=== PATIENT | male | born 1950 | race Caucasian/White ===

== ENCOUNTER 2019-10-07 21:48 | Emergency (ER) | payer BC ==
--- OUTSIDE RECORDS SUMMARY | 2019-10-07 21:51 | XMS REPORT | Continuity of Care Document ---
:1950 Author Organization [facility] t Address [address] [place] [address] Dr. Yusuf [address] [place] [address] Care Team Providers Name Role Phone Unavailable Unavailable Unavailable Problems This patient has no known problems. Allergies, Adverse Reactions, Alerts This patient has no known allergies or adverse reactions. Medications This patient has no known medications. Procedures This patient has no known procedures. Results This patient has no known results.
[2019-10-07 23:33] LABS: Absolute Lymphocytes (CBC) 0.6 K/uL (0.7-4.9); Basophils % 0.5 % (0-1.3); Hematocrit 40.4 % (39.6-49.0); Lymphocytes % 14.8 % (15.3-44.8); MPV 9.9 fL (7.6-11.3); RBC Red Blood Cell Count 4.22 M/uL (4.33-5.43)
[2019-10-07 23:39] LABS: Protime INR 0.98
[2019-10-07 23:53] LABS: ALT/SGPT 30 U/L (12-78); AST/SGOT 24 U/L (15-37); Albumin 4.2 g/dL (3.4-5.0); Alkaline Phosphatase 91 U/L (45-117); BUN Blood Urea Nitrogen 19 mg/dL (7-18); Bicarbonate 24 mmol/L (21-32); Bilirubin Direct 0.2 mg/dL (0-0.2); Bilirubin Total 0.5 mg/dL (0.2-1.0); CKMB Creatine Kinase MB 1.2 ng/mL (0.3-3.6); Creatine Phosphokinase 101 U/L (39-308); Glucose Level 94 mg/dL (74-106); Lipase 276 U/L (73-393); NT PRO-BNP 84 pg/mL (<125); Potassium 4.3 mmol/L (3.5-5.1); Protein, Total 8.1 g/dL (6.4-8.2); Sodium Level 138 mmol/L (136-145); Troponin (Emerg Dept Use Only) < 0.02 ng/mL (0.0-0.045)
--- NOTE | 2019-10-08 00:54 | ER ---
Nurse's Notes [facility] Name: Júnior Rodrigues Age: 69 yrs Sex: Male : 1950 Arrival Date: 10/07/2019 Time: 21:51 Bed 7 Private MD: Diagnosis: Acute pharyngitis, unspecified;Dyspnea Presentation: 10/06 22:07 Chief complaint: Patient states: Jamee had some shortness of breath over the last two sg days, Jamee felt really dizzy today like I was about to to pass out, I was dx with a sinus congestion and I think its just moved further down the bronchials. Coronavirus screen: Proceed with normal triage. Ebola Screen: Patient negative for fever greater than or equal to 101.5 degrees Fahrenheit, and additional compatible Ebola Virus Disease symptoms Patient denies exposure to infectious person. Patient denies travel to an Ebola-affected area in the 21 days before illness onset. No symptoms or risks identified at this time. Initial Sepsis Screen: Does the patient meet any 2 criteria? No. Patient's initial sepsis screen is negative. Does the patient have a suspected source of infection? No. Patient's initial sepsis screen is negative. Risk Assessment: Do you want to hurt yourself or someone else? Patient reports no desire to harm self or others. Onset of symptoms was October 07, 2019. Care prior to arrival: None. 22:07 Method Of Arrival: Ambulatory 22:07 Acuity: SHEKHAR 3 Triage Assessment: 10/07 00:00 Respiratory: Airway is patent Respiratory effort is even, unlabored, Onset: The rv symptoms/episode began/occurred suddenly, the patient has mild shortness of breath. 00:00 General: Appears comfortable. rv Historical: - Allergies: 10/06 22:07 No Known Allergies; sg - Home Meds: 23:59 losartan oral oral [Active]; atorvastatin oral oral [Active]; carvedilol oral oral rr5 [Active]; clopidogrel oral oral [Active]; Zetia Oral [Active]; restasis [Active]; fluticasone nasal nasal [Active]; pantoprazole oral oral [Active]; Aspirin Oral [Active]; Osteo Bi-Flex Triple Strength oral oral [Active]; Refresh Optive ophthalmic ophthalmic [Active]; FreshKote ophthalmic ophthalmic [Active]; romero gelatin [Active]; - PMHx: 23:59 small bowel obstruction; rr5 23:59 Hyperlipidemia; rr5 - PSHx: 23:59 stent implant; Cholecystectomy; rr5 - Immunization history:: Adult Immunizations up to date. - Social history:: Smoking status: Patient denies any tobacco usage or history of. Screenin:23 Abuse screen: Denies threats or abuse. Denies injuries from another. Nutritional rr5 screening: No deficits noted. Tuberculosis screening: No symptoms or risk factors identified. Fall Risk IV access (20 points). Total Rico Fall Scale indicates No Risk (0-24 pts). Assessment: 22:50 General: Appears in no apparent distress. uncomfortable, Behavior is calm, cooperative, rr5 appropriate for age. 22:50 Pain: Denies pain. Neuro: Level of Consciousness is awake, alert, obeys commands, rr5 Oriented to person, place, time, situation, Reports dizziness, a syncopal episode. Cardiovascular: Capillary refill < 3 seconds Patient's skin is warm and dry. Rhythm is regular. Respiratory: Reports shortness of breath Airway is patent Respiratory effort is even, unlabored, Respiratory pattern is regular, symmetrical, GI: No signs and/or symptoms were reported involving the gastrointestinal system. : No signs and/or symptoms were reported regarding the genitourinary system. EENT: No signs and/or symptoms were reported regarding the EENT system. Derm: Skin is intact, is healthy with good turgor, Skin temperature is warm. Musculoskeletal: Circulation, motion, and sensation intact. Capillary refill < 3 seconds. 23:30 Reassessment: Patient appears in no apparent distress at this time. Patient is alert, rr5 oriented x 3, equal unlabored respirations, skin warm/dry/pink. awaiting for results. 10/07 00:50 Reassessment: Patient appears in no apparent distress at this time. Patient is alert, rr5 oriented x 3, equal unlabored respirations, skin warm/dry/pink. discharge instruction given and explained without complaints made. Vital Signs: 10/06 22:07 BP 132 / 70; Pulse 87; Resp 18 S; Temp 98.2; Pulse Ox 100% on R/A; Pain 3/10; sg 23:00 BP 121 / 79; Pulse 80; Resp 19; Pulse Ox 98% ; rr5 23:53 BP 128 / 81; Pulse 76; Resp 17; Pulse Ox 99% ; rr5 10/07 00:58 BP 129 / 80; Pulse 65; Resp 17; Temp 98; Pulse Ox 97% on R/A; rv ED Course: 10/05 22:55 Flu and/or RSV swab sent to lab. Strep swab sent to lab. covid 19. rr5 10/06 21:51 Patient arrived in ED. cf2 22:06 Arm band placed on. sg 22:09 Triage completed. sg 22:10 Patient has correct armband on for positive identification. Placed in gown. Bed in low rr5 position. Call light in reach. secured entrance monitor on. Pulse ox on. NIBP on. 22:46 Rony Rey MD is Attending Physician. tw4 22:54 Miguel A Perea, RN is Primary Nurse. rr5 23:00 EKG done, by ED staff, reviewed by Rony Rey MD. rr5 23:10 First set of blood cultures drawn. Inserted saline lock: 20 gauge in right forearm, rr5 using aseptic technique. Blood collected. 23:30 Second set of blood cultures drawn. rr5 23:44 XRAY CXR (1 view) In Process Unspecified. EDMS 10/07 00:58 No provider procedures requiring assistance completed. IV discontinued, intact, rv bleeding controlled, No redness/swelling at site. Pressure dressing applied. Administered Medications: No medications were administered Outcome: 00:53 Discharge ordered by . tw4 01:01 Discharged to home ambulatory. rv 01:01 Condition: good 01:01 Discharge instructions given to patient, Instructed on discharge instructions, follow up and referral plans. medication usage, Demonstrated understanding of instructions, follow-up care, medications, Prescriptions given X 2. 01:01 Patient left the ED. rv Addendum: 10/12/2019 17:49 Addendum: COVID-19 Result: Positive result giiven to ED physician to notify pt. h b Physician: Chace Ramos MD Physician was able to contact pt and pt was notified of positive COVID-19 swab result. Physician answered pt questions. Signatures: Dispatcher [employer] EDAK Dk Mahoney RN RN Keyla Gonzalez RN PRIMITIVO Rony Rey MD MD tw4 Nehemias Keller, RN RN rv Miguel A Perea RN RN rr5 Rosa Larsen cf2 Corrections: (The following items were deleted from the chart) 18:31 17:49 Addendum: COVID-19 Result: Positive result giiven to ED physician to notify pt. hb Physician: Chace Ramos MD
--- NOTE | 2019-10-08 00:54 | EDPHYS ---
Physician Documentation [facility] Name: Júnior Rodrigues Age: 69 yrs Sex: Male : 1950 Arrival Date: 10/07/2019 Time: 21:51 Bed 7 Private MD: ED Physician Rony Rey HPI: 10/07 06:01 This 69 yrs old Male presents to ER via Ambulatory with complaints of tw4 Shortness Of Breath. 06:01 The patient has shortness of breath at rest. Onset: The symptoms/episode began/occurred tw4 just prior to arrival, today. Duration: The symptoms are intermittent. The patient's shortness of breath has no apparent modifying factors. Associated signs and symptoms: The patient has no apparent associated signs or symptoms. Severity of symptoms: At their worst the symptoms were moderate in the emergency department the symptoms have improved. The patient has not experienced similar symptoms in the past. Historical: - Allergies: 10/06 22:07 No Known Allergies; sg - Home Meds: 23:59 losartan oral oral [Active]; atorvastatin oral oral [Active]; carvedilol oral oral rr5 [Active]; clopidogrel oral oral [Active]; Zetia Oral [Active]; restasis [Active]; fluticasone nasal nasal [Active]; pantoprazole oral oral [Active]; Aspirin Oral [Active]; Osteo Bi-Flex Triple Strength oral oral [Active]; Refresh Optive ophthalmic ophthalmic [Active]; FreshKote ophthalmic ophthalmic [Active]; romero gelatin [Active]; - PMHx: 23:59 small bowel obstruction; rr5 23:59 Hyperlipidemia; rr5 - PSHx: 23:59 stent implant; Cholecystectomy; rr5 - Immunization history:: Adult Immunizations up to date. - Social history:: Smoking status: Patient denies any tobacco usage or history of. ROS: 10/07 06:01 Constitutional: Negative for fever, chills, and weight loss, Eyes: Negative for injury, tw4 pain, redness, and discharge, Cardiovascular: Negative for chest pain, palpitations, and edema, Abdomen/GI: Negative for abdominal pain, nausea, vomiting, diarrhea, and constipation, Back: Negative for injury and pain, MS/Extremity: Negative for injury and deformity, Skin: Negative for injury, rash, and discoloration, Neuro: Negative for headache, weakness, numbness, tingling, and seizure. Respiratory: Positive for shortness of breath, Negative for cough, dyspnea on exertion, hemoptysis, orthopnea, pleurisy. Exam: 06:01 Constitutional: This is a well developed, well nourished patient who is awake, alert, tw4 and in no acute distress. Head/Face: Normocephalic, atraumatic. Chest/axilla: Normal chest wall appearance and motion. Nontender with no deformity. No lesions are appreciated. Cardiovascular: Regular rate and rhythm with a normal S1 and S2. No gallops, murmurs, or rubs. Normal PMI, no JVD. No pulse deficits. Respiratory: Lungs have equal breath sounds bilaterally, clear to auscultation and percussion. No rales, rhonchi or wheezes noted. No increased work of breathing, no retractions or nasal flaring. Abdomen/GI: Soft, non-tender, with normal bowel sounds. No distension or tympany. No guarding or rebound. No evidence of tenderness throughout. MS/ Extremity: Pulses equal, no cyanosis. Neurovascular intact. Full, normal range of motion. Neuro: Awake and alert, GCS 15, oriented to person, place, time, and situation. Cranial nerves II-XII grossly intact. Motor strength 5/5 in all extremities. Sensory grossly intact. Cerebellar exam normal. Normal gait. Vital Signs: 10/06 22:07 BP 132 / 70; Pulse 87; Resp 18 S; Temp 98.2; Pulse Ox 100% on R/A; Pain 3/10; sg 23:00 BP 121 / 79; Pulse 80; Resp 19; Pulse Ox 98% ; rr5 23:53 BP 128 / 81; Pulse 76; Resp 17; Pulse Ox 99% ; rr5 10/07 00:58 BP 129 / 80; Pulse 65; Resp 17; Temp 98; Pulse Ox 97% on R/A; rv MDM: 10/06 22:47 Patient medically screened. tw4 10/07 06:01 Differential diagnosis: Anxiety Reaction Bronchitis pneumonia, Pneumothorax pulmonary tw4 edema, reactive airway disease. Antibiotic administration: Not indicated. Data reviewed: vital signs, nurses notes. Data interpreted: Pulse oximetry: Interpretation: normal. Counseling: I had a detailed discussion with the patient and/or guardian regarding: the historical points, exam findings, and any diagnostic results supporting the discharge/admit diagnosis. Special discussion: I discussed with the patient/guardian in detail that at this point there is no indication for admission to the hospital. It is understood, however, that if the symptoms persist or worsen the patient needs to return immediately for re-evaluation. 10/06 22:47 Order name: Blood Culture Adult (2) 10/06 22:47 Order name: BMP; Complete Time: 00:43 10/07 00:43 Interpretation: Normal except: BUN 19; GFR 61. 10/06 22:47 Order name: CBC with Diff; Complete Time: 00:43 10/07 00:44 Interpretation: Normal except: WBC 4.1; RBC 4.22; LYM% 14.8; PLT 124. 10/06 22:47 Order name: Ckmb; Complete Time: 00:43 10/07 00:44 Interpretation: Within normal limits: CKMB 1.2. 10/06 22:47 Order name: CPK; Complete Time: 00:43 10/07 00:44 Interpretation: Within normal limits: CPK 101. 10/06 22:47 Order name: D-Dimer; Complete Time: 00:43 10/07 00:44 Interpretation: Within normal limits: D-DIMER 218. 10/06 22:47 Order name: Hepatic Function; Complete Time: 00:43 10/07 00:44 Interpretation: Normal except: GLOB 3.9. 10/06 22:47 Order name: Lipase; Complete Time: 00:43 10/07 00:44 Interpretation: Within normal limits: LIP 276. 10/06 22:47 Order name: Magnesium; Complete Time: 00:43 10/07 00:44 Interpretation: Within normal limits: MG 2.0. 10/06 22:47 Order name: NT PRO-BNP; Complete Time: 00:43 10/07 00:44 Interpretation: Within normal limits: NT PRO-BNP 84. 10/06 22:47 Order name: PT-INR; Complete Time: 00:43 10/07 00:44 Interpretation: Within normal limits: PT 11.6. 10/06 22:47 Order name: Ptt, Activated; Complete Time: 00:43 10/07 00:45 Interpretation: Within normal limits: PTT 36.6. 10/06 22:47 Order name: Troponin (emerg Dept Use Only); Complete Time: 00:43 10/07 00:46 Interpretation: Within normal limits: TROPED < 0.02. 10/06 22:47 Order name: COVID-19 10/06 22:47 Order name: XRAY CXR (1 view) 10/06 22:47 Order name: EKG; Complete Time: 22:48 10/06 22:47 Order name: Cardiac monitoring; Complete Time: 23:22 10/06 22:47 Order name: EKG - Nurse/Tech; Complete Time: 23:22 10/06 22:47 Order name: IV Saline Lock; Complete Time: 23:22 10/06 22:47 Order name: Labs collected and sent; Complete Time: 23:22 10/06 22:47 Order name: O2 Per Protocol; Complete Time: 23:22 10/06 22:47 Order name: O2 Sat Monitoring; Complete Time: 23:22 10/06 22:47 Order name: Flu; Complete Time: 00:43 10/06 22:47 Order name: Strep; Complete Time: 00:43 10/07 00:44 Interpretation: Abnormal: GP A STREP SC \T\nbsp; GROUP A STREP SCREEN-- \T\nbsp; \T\nbsp; tw4 POSITIVE. 10/06 22:47 Order name: Document PUI#; Complete Time: 01:01 10/06 22:47 Order name: Droplet/Contact Precautions; Complete Time: 23:21 10/06 22:47 Order name: Labs collected and sent; Complete Time: 23:21 10/06 22:47 Order name: Notify Health Dept [phone]/ ; Complete Time: 01:00 EC:01 Rate is 66 beats/min. Rhythm is regular. QRS [place] is Normal. NH interval is normal. QRS tw4 interval is normal. QT interval is normal. No Q waves. T waves are Normal. No ST changes noted. Clinical impression: Normal ECG. Interpreted by me. Reviewed by me. Administered Medications: No medications were administered Disposition: 10/08/19 00:53 Discharged to Home. Impression: Acute pharyngitis, unspecified, Dyspnea. - Condition is Stable. - Discharge Instructions: Pharyngitis, Shortness of Breath, Strep Throat, Upper Respiratory Infection, Adult. - Prescriptions for Amoxicillin 500 mg Oral Capsule - take 1 capsule by ORAL route every 8 hours for 10 days; 30 tablet. Albuterol Sulfate 90 mcg/actuation - inhale 1-2 puff by INHALATION route every 4-6 hours; 1 Inhaler. - Medication Reconciliation Form, Thank You Letter, Antibiotic Education, Prescription Opioid Use form. - Follow up: Private Physician; When: Upon discharge from the Emergency Department; Reason: Recheck today's complaints, Continuance of care, Re-evaluation by your physician. - Problem is new. - Symptoms have improved. Signatures: Dispatcher [employer] EDMS Dk Mahoney RN RN sg Rony Rey MD MD tw4 Nehemias Keller RN RN rv Miguel A Perea RN RN rr5 Corrections: (The following items were deleted from the chart) 01:01 00:53 10/08/2019 00:53 Discharged to Home. Impression: Acute pharyngitis, unspecified; rv Dyspnea. Condition is Stable. Forms are Medication Reconciliation Form, Thank You Letter, Antibiotic Education, Prescription Opioid Use. Follow up: Private Physician; When: Upon discharge from the Emergency Department; Reason: Recheck today's complaints, Continuance of care, Re-evaluation by your physician. Problem is new. Symptoms have improved. tw4
[2019-10-08 01:14] VITALS: BP 129/80; TEMP 98; O2SAT 97
--- NOTE | 2019-10-08 08:56 | EKG ---
Test Date: 2019-10-07 Test Time: 23:13:16 Contract Administrator: JOSE MANUEL MEASUREMENT RESULTS: Intervals: Rate: 66 NC: 158 QRSD: 88 QT: 392 QTc: 410 [place]: P: 60 NC: 158 QRS: 45 T: 42 INTERPRETIVE STATEMENTS: Normal sinus rhythm Normal ECG No previous ECG available for comparison Electronically Signed On 10-08-19 08:55:08 CDT by Isma Ma
--- NOTE | 2019-10-08 12:08 | RAD REPORT ---
EXAM DESCRIPTION: RAD - Chest Single View - 10/07/2019 11:44 pm CLINICAL HISTORY: SOB Chest pain. COMPARISON: No comparisons FINDINGS: Portable technique limits examination quality. The lungs are mildly emphysematous but grossly clear. The heart is normal in size. No displaced fract ures. IMPRESSION: No acute intrathoracic process suspected.
== END 2019-10-08 01:01 | disposition home or self-care (01) ==
LOC: ER 21:48
DX: U07.1 COVID-19 (principal); J02.9 Acute pharyngitis, unspecified; E78.5 Hyperlipidemia, unspecified; Z79.82 Long term (current) use of aspirin
CPT/HCPCS: 93005; 87040 ×2; 85025; 80048; 36415; 83735; 82550; 85610; 85379; 80076; 87081; 85730; 84484; 82553; 83690; 83880; 87804 ×2; 71045; 99284; U0001

== ENCOUNTER 2022-09-15 08:48 | Emergency (ER) | payer BC, OTHER ==
--- OUTSIDE RECORDS SUMMARY | 2022-09-15 08:56 | XMS REPORT | Continuity of Care Document ---
:1950 Author Organization [facility] t Address [address] [place] [address] [place] [id number] Care Team Providers Name Role Phone Angel Bach Primary Care Physician DYLAN VILLEGAS Attending Clinician Unavailable AIDAN YORK Attending Clinician Unavailable DYLAN VILLEGAS Attending Clinician Unavailable Doctor Unassigned, Vanoss Attending Clinician Unavailable Aidan York MD Attending Clinician [phone] Angel Bach MD Attending Clinician Lab, Ang - Db Attending Clinician Unavailable ANGEL BACH Attending Clinician Unavailable Therapist, Adc Respiratory Attending Clinician Unavailable Dillon Robbins MD Attending Clinician DILLON ROBBINS Attending Clinician Unavailable Pob, Adc Lab Main Attending Clinician Unavailable Vaccine, Ang Db Uc Attending Clinician Unavailable Kelsi Gomez MD Attending Clinician KELSI GOMEZ Attending Clinician Unavailable Wen Culp Attending Clinician Lula Angulo Attending Clinician LULA JARQUIN Attending Clinician Unavailable WEN LAM Attending Clinician Unavailable Dylan Villegas MD Attending Clinician [phone] Angelia Burgess MD Attending Clinician Andrea DAVE Hayder Attending Clinician Only, Adc Test Attending Clinician Unavailable Benjamin Clark MD Attending Clinician BENJAMIN CLARK Attending Clinician Unavailable Ada LEE, Mercedez Attending Clinician MERCEDEZ HADDAD Attending Clinician Unavailable Carlyn Rowan MD Attending Clinician Unavailable YUNIOR DEAN Attending Clinician Unavailable Nurse, Adc Pob Immunization Attending Clinician Unavailable Earl KRAUSE, Yunior Gavin Attending Clinician Vlad Cervantes MD Attending Clinician VLAD CERVANTES Attending Clinician Unavailable GER MCKEON Attending Clinician Unavailable Lab, Adc Fam Pob I Attending Clinician Unavailable Roberta Bauman PA-C Attending Clinician Pob1, [facility] Attending Clinician Unavailable DYLAN VILLEGAS Admitting Clinician Unavailable AIDAN YORK Admitting Clinician Unavailable Payers Payer Name Policy Type Policy Number Effective Date Expiration Date S ource BCBS PPO POS [id number] 2017 2021 00:00:00 EPO CHOICE 00:00:00 PPO/EPO - BCBS [id number] Problems Condition Condition Condition Status Onset Resolution Last Treating Co mments Source Name Details Category Date Date Treatment Clinician Date S/P S/P Disease Active 2014-04 [facility] coronary coronary 04-28 ity of artery artery 00:00: [place] stent stent 00 Medical placement placement Bran ch Essential Essential Disease Active 2014-04 Uni vers hypertensi hypertensi 04-23 it y of on, benign [place], benign 00:[place] [facility] Reflux Reflux Disease Active 2014-04 [facility] esophagiti esophagiti 04-23 it y of s s 00:00: [place] 00 Medical Branch 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 & Fatigue Allergies, Adverse Reactions, Alerts Allergy Allergy Status Severity Reaction(s) Onset Inactive Treating Comm ents Source Name Type Date Date Clinician LATEX Allergy Active Low Rash 2020-[address] [facility]OVES 2-06 [facility] 00:[facility]: [facility] 00 Center GLOVES, DRUG Active Low Rash 2020-04 Univers LATEX 2-06 ity of WITH 00:00: [place] ALOE 00 Medical VERA Branch Gloves, Drug Active Rash 2020-04 Univers Latex Allergy 2-06 ity of With 00:00: [place] Aloe 00 Medical Vera Branch Latex Drug Active Rash 2020-[address] [facility] Gloves Allergy 2-06 [facility] 00:[facility]: Medical 00 Center Sulfa Drug Active Itching Turned [facility] (Sulfona Allergy 1-14 eyes red, Luke s mide 00:00: burned, Medical Antibiot 00 itched Center ics) SULFA Allergy Active Low Itching [facility] (SULFONA 1-14 [facility] MIDE 00:00: Medical ANTIBIOT 00 Center ICS) Sulfa Drug Active Itching Turned [facility] (Sulfona Allergy 1-14 eyes red, Luke s mide 00:00: burned, Medical Antibiot 00 itched Center ics) SULFA Drug Active Low Unknown-Cmnt 2014-04 Univ ers (SULFONA Class 1-18 ity of MIDE 00:00: [place] ANTIBIOT 00 Medical ICS) Branch Sulfa Drug Active Itching 2014-04 Turned Univers (Sulfona Allergy 1-18 eyes red, ity of mide 00:00: burned, [place] Antibiot 00 itched Medical ics) Branch Sulfa Propensi Active Unknown - 2014-04 Unive rs (Sulfona ty to See comments 1-18 it y of mide adverse 00:00: [place] Antibiot reaction 00 Medica l ics) s Branch Social History Social Habit Start Date Stop Date Quantity Comments Source History SDOH [facility] Alcohol Frequency Medical Center History SDOH [facility] Alcohol Std Medical Cente r Drinks History SDOH [facility] Alcohol Binge Medical L[address] [facility] Exposure to 2022-03-30 2022-04-[address] [facility] SARS-CoV-2 00:00:00 08:25:00 [place] Medical (event) Branch Tobacco use and 2021-12-11 2021-12-11 Smokeless tobacco Un iversity of exposure 00:00:00 00:00:00 non-user [facility] Alcohol intake 2021-04-09 2021-04-09 Current drinker KATIE woodard Jayson 00:00:00 00:00:00 [facility] (finding) Alcohol Comment 2021-03-11 2021-03-11 2 per month KATIE Osborn brigitte 00:00:00 00:00:00 [facility] History of 1995-02-26 Cigarette Smoker Jay Jay ty of tobacco use 00:00:00 [facility] Sex [birth year] At [birth year] KATIE Tran 00:00:00 00:00:00 [facility] Smoking Status Start Date Stop Date Source Ex-smoker 2021-03-11 00:00:00 2021-03-11 00:00:00 [facility] Medications Ordered Filled Start Stop Current Ordering Indication Dosage Frequency Signature Comments Components Source Medication Medication Date Date Medication? Clinician (SIG) Name Name FLUTICASONE 2021-04 Yes [id number] SPRAY 2 Univers PROPIONATE 1-16 SPRAYS ity of 50 00:00: INTO EACH [place] mcg/actuati 00 NOSTRIL Medic al on nasal EVERY DAY Branch spray FLUTICASONE 2021-04 Yes [id number] SPRAY 2 Univers PROPIONATE 1-16 SPRAYS ity of 50 00:00: INTO EACH [place] mcg/actuati 00 NOSTRIL Medic al on nasal EVERY DAY Branch spray FLUTICASONE 2021-04 Yes [id number] SPRAY 2 Univers PROPIONATE 1-16 SPRAYS ity of 50 00:00: INTO EACH [place] mcg/actuati 00 NOSTRIL Medic al on nasal EVERY DAY Branch spray FLUTICASONE 2021-04 Yes [id number] SPRAY 2 Univers PROPIONATE 1-16 SPRAYS ity of 50 00:00: INTO EACH [place] mcg/actuati 00 NOSTRIL Medic al on nasal EVERY DAY Branch spray FLUTICASONE 2021-04 Yes [id number] SPRAY 2 Univers PROPIONATE 1-16 SPRAYS ity of 50 00:00: INTO EACH [place] mcg/actuati 00 NOSTRIL Medic al on nasal EVERY DAY Branch spray FLUTICASONE 2021-04 Yes [id number] SPRAY 2 Univers PROPIONATE 1-16 SPRAYS ity of 50 00:00: INTO EACH [place] mcg/actuati 00 NOSTRIL Medic al on nasal EVERY DAY Branch spray FLUTICASONE 0 Yes [id number] SPRAY 2 Univers PROPIONATE 9-22 SPRAYS ity of 50 00:00: INTO EACH [place] mcg/actuati 00 NOSTRIL Medic al on nasal EVERY DAY Branch spray FLUTICASONE 0 Yes [id number] SPRAY 2 Univers PROPIONATE 9-22 SPRAYS ity of 50 00:00: INTO EACH [place] mcg/actuati 00 NOSTRIL Medic al on nasal EVERY DAY Branch spray FLUTICASONE 0 Yes [id number] SPRAY 2 Univers PROPIONATE 9-22 SPRAYS ity of 50 00:00: INTO EACH [place] mcg/actuati 00 NOSTRIL Medic al on nasal EVERY DAY Branch spray FLUTICASONE 0 Yes [id number] SPRAY 2 Univers PROPIONATE 9-22 SPRAYS ity of 50 00:00: INTO EACH [place] mcg/actuati 00 NOSTRIL Medic al on nasal EVERY DAY Branch spray FLUTICASONE 0 Yes [id number] SPRAY 2 Univers PROPIONATE 9-22 SPRAYS ity of 50 00:00: INTO EACH [place] mcg/actuati 00 NOSTRIL Medic al on nasal EVERY DAY Branch spray FLUTICASONE Yes [id number] SPRAY 2 Univers PROPIONATE 9-22 SPRAYS ity of 50 00:00: INTO EACH [place] mcg/actuati 00 NOSTRIL Medic al on nasal EVERY DAY Branch spray FLUTICASONE 2021- No [id number] SPRAY 2 Univers PROPIONATE 9-22 11-16 SPRAYS ity of 50 00:00: 00:00 INTO EACH [place] mcg/actuati 00 :00 NOSTRIL Medic al on nasal EVERY DAY Branch spray azithromyci 0 Yes [id number] 250mg Take 1 Univers n 250 mg 6-16 tablet by ity of tablet 00:00: mouth [place] 00 daily. Medical Take 500 Branch mg day 1, then 250 mg days 2 to 5. azithromyci 2021-0 Yes [id number] 250mg Take 1 Univers n 250 mg 6-16 tablet by ity of tablet 00:00: mouth [place] 00 daily. Medical Take 500 Branch mg day 1, then 250 mg days 2 to 5. azithromyci 2021-0 Yes [id number] 250mg Take 1 Univers n 250 mg 6-16 tablet by ity of tablet 00:00: mouth [place] 00 daily. Medical Take 500 Branch mg day 1, then 250 mg days 2 to 5. azithromyci 2022-0 Yes [id number] 250mg Take 1 Univers n 250 mg 6-16 tablet by ity of tablet 00:00: mouth [place] 00 daily. Medical Take 500 Branch mg day 1, then 250 mg days 2 to 5. azithromyci 2022-0 Yes [id number] 250mg Take 1 Univers n 250 mg 6-16 tablet by ity of tablet 00:00: mouth [place] 00 daily. Medical Take 500 Branch mg day 1, then 250 mg days 2 to 5. azithromyci 2022-0 Yes [id number] 250mg Take 1 Univers n 250 mg 6-16 tablet by ity of tablet 00:00: mouth [place] 00 daily. Medical Take 500 Branch mg day 1, then 250 mg days 2 to 5. azithromyci 2022-0 2022- No [id number] 250mg Take 1 Univers n 250 mg 6-16 11-14 tablet by ity o f tablet 00:00: 00:00 mouth [place] 00 :00 daily. Medical Take 500 Branch mg day 1, then 250 mg days 2 to 5. azithromyci 2022-0 2022- No [id number] 250mg Take 1 Univers n 250 mg 6-16 11-14 tablet by ity o f tablet 00:00: 00:00 mouth [place] 00 :00 daily. Medical Take 500 Branch mg day 1, then 250 mg days 2 to 5. methylPREDN 2022-0 Yes [id number] Take by [facility] ISolone 5-29 mouth ity of (MEDROL, 00:00: SEE-INSTRU [place] as SOILA,) 4 mg 00 CTIONS. Medica l tablets follow Branch package directions methylPREDN 2022-0 Yes [id number] Take by [facility] ISolone 5-29 mouth ity of (MEDROL, 00:00: SEE-INSTRU [place] SOILA,) 4 mg 00 CTIONS. Medica l tablets follow Branch package directions methylPREDN 2022-0 Yes [id number] Take by [facility] ISolone 5-29 mouth ity of (MEDROL, 00:00: SEE-INSTRU [place] SOILA,) 4 mg 00 CTIONS. Medica l tablets follow Branch package directions methylPREDN 2022-0 Yes [id number] Take by [place] [facility] 09-01 mouth ity of (MEDROL, 00:00: SEE-INSTRU [place] SOILA,) 4 mg 00 CTIONS. Medica l tablets follow Branch package directions methylPREDN Yes [id number] Take by [facility] 09-01 mouth ity of (MEDROL, 00:00: SEE-INSTRU [place] SOILA,) 4 mg 00 CTIONS. Medica l tablets follow Branch package directions methylPREDN Yes [id number] Take by [facility] mouth ity of (MEDROL, 00:00: SEE-INSTRU [place] SOILA,) 4 mg 00 CTIONS. Medica l tablets follow Branch package directions methylPREDN 2021- No [id number] Take by [place] [id number] 11-14 mouth ity of (MEDROL, 00:00: 00:00 [place]IN[place] SOILA,) 4 mg 00 :00 CTIONS. Medica l tablets follow Branch package directions methylPREDN 2021- No [id number] Take by [place] [id number] 11-14 mouth ity of (MEDROL, 00:00: 00:00 [place]INSTRU [place] SOILA,) 4 mg 00 :00 CTIONS. Medica l tablets follow Branch package directions aspirin 81 Yes 81mg QD Take [address] MG EC 1-04 by mouth [facility] tablet 10:07: daily. Medical 24 [place] atorvastati Yes 10mg QD Take [address] [facility] (LIPITOR) 1-04 by mouth Luke s 10 MG 10:07: nightly . Medical tablet 24 [place] carvediloL Yes 3.125mg Take 3.[address] (COREG) 1-04 mg by [facility] 3.125 MG 10:07: mouth 2 Medica l tablet 24 (two) Center times daily with breakfast and dinner. clopidogreL Yes 75mg QD Take [address] [facility] (PLAVIX) 75 1-04 by mouth Luke s mg tablet 10:07: daily. Medica l [address] [place] cycloSPORIN Yes 1[drp] Q.5D [address] [facility] E 1-04 (two) [facility]ukes (RESTASIS) 10:07: times Medica l 0.05 % 24 daily. Center ophthalmic emulsion diflupredna Yes Apply to [facility] 1-04 eye(s). [facility] (DurezoL) 10:07: Medical 0.05 % Drop 24 Center ezetimibe Yes 10mg QD Take [address] (ZETIA) 10 104 by mouth [facility] mg tablet 10:07: daily. Medica l 24 Center fluticasone Yes 1{spray [address] [facility] propionate 04-09 } Nasal [facility] (FLONASE) 10:07: route Medical 50 24 daily as Center mcg/actuati needed for on nasal Rhinitis spray or Allergies . losartan Yes 50mg QD Take [address] [facility] (COZAAR) 50 04 by mouth Luke s MG tablet 10:07: daily. Medica l 24 Center pantoprazol Yes 20mg QD Take [address] [facility] [facility] e 104 by mouth [facility] (PROTONIX) 10:07: daily. Medic al 20 MG 24 Center tablet bromfenac Yes Apply to [facility] (Prolensa) 1 eye(s). [facility] 0.07 % Drop 10:07: Medica l 24 Center polymyxin B Yes 1[drp] [address] sulf-trimet 1-04 every 4 [facility] hoprim 10:07: (four) Medical 10,000 24 hours. Center unit- 1 mg/mL Drop psyllium Yes 1{packe Q.5D Take [address] [facility] (METAMUCIL) 1-04 t} packet by [place] es powder 10:07: mouth 2 Medical 24 (two) Center times daily . glucosamine Yes 1{capsu QD Take [address] /chondr green 1-04 le} capsule by [facility] es A sod 10:07: mouth Medical (OSTEO 24 daily . Center BI-FLEX ORAL) carboxymeth Yes 1[drp] Place [address] ylcellulose 1-04 drop into [place] [facility] (REFRESH 10:07: both eyes Medi jluis PLUS) 0.5 % 24 3 (three) [address] [facility] Dpet times ophthalmic daily as solution needed. aspirin 81 Yes 81mg QD Take [address] MG EC 1-04 by mouth [facility] tablet 10:07: daily. Medical 24 Center atorvastati Yes 10mg QD Take [address] [facility] (LIPITOR) 1-04 by mouth Luke s 10 MG 10:07: nightly . Medical tablet 24 Center carvediloL Yes 3.125mg Take 3.[address] (COREG) 1-04 mg by [facility] 3.125 MG 10:07: mouth 2 Medica l tablet 24 (two) Center times daily with breakfast and dinner. clopidogreL Yes 75mg QD Take [address] [facility] (PLAVIX) 75 1-04 by mouth Luke s mg tablet 10:07: daily. Medica l 24 Center cycloSPORIN Yes 1[drp] Q.5D [address] [facility] E 1-04 (two) [facility]ukes (RESTASIS) 10:07: times Medica l 0.05 % 24 daily. Center ophthalmic emulsion diflupredna Yes Apply to [facility] 1-04 eye(s). [facility] (DurezoL) 10:07: Medical 0.05 % Drop 24 Center ezetimibe Yes 10mg QD Take [address] (ZETIA) 10 1-04 by mouth [facility] mg tablet 10:07: daily. Medica l 24 Center fluticasone Yes 1{spray [address] [facility] propionate 04-09 } Nasal [facility] (FLONASE) 10:07: route Medical 50 24 daily as Center mcg/actuati needed for on nasal Rhinitis spray or Allergies . losartan Yes 50mg QD Take [address] (COZAAR) 50 1-04 by mouth Luke s MG tablet 10:07: daily. Medica l 24 Center pantoprazol Yes 20mg QD Take [address] [facility] e 1-04 by mouth [facility] (PROTONIX) 10:07: daily. Medic al 20 MG 24 Center tablet bromfenac Yes Apply to [facility] (Prolensa) 1-04 eye(s). [facility] 0.07 % Drop 10:07: Medica l 24 Center polymyxin B Yes 1[drp] [address] sulf-trimet 1-04 every 4 [facility]ukes hoprim 10:07: (four) Medical 10,000 24 hours. Center unit- 1 mg/mL Drop psyllium Yes 1{packe Q.5D Take [address] [facility] (METAMUCIL) 1-04 t} packet by [employer] powder 10:07: mouth 2 Medical 24 (two) Center times daily . glucosamine Yes 1{capsu QD Take [address] /chondr green 1-04 le} capsule by [facility] es A sod 10:07: mouth Medical (OSTEO 24 daily . Center BI-FLEX ORAL) carboxymeth Yes 1[drp] Place [address] ylcellulose 1-04 drop into [facility] (REFRESH 10:07: both eyes Medi jluis PLUS) 0.5 % 24 3 (three) [address] [facility] Dpet times ophthalmic daily as solution needed. aspirin 81 Yes 81mg QD Take [address] MG EC 1-04 by mouth [facility] tablet 10:07: daily. Medical 24 Center atorvastati Yes 10mg QD Take [address] n (LIPITOR) 1-04 by mouth Luke s 10 MG 10:07: nightly . Medical tablet 24 Center carvediloL Yes 3.125mg Take 3.[address] (COREG) 1-04 mg by [facility] 3.125 MG 10:07: mouth 2 Medica l tablet 24 (two) Center times daily with breakfast and dinner. clopidogreL Yes 75mg QD Take [address] (PLAVIX) 75 1-04 by mouth Luke s mg tablet 10:07: daily. Medica l 24 Center cycloSPORIN Yes 1[drp] Q.5D [address] [facility] E 1-04 (two) [facility]ukes (RESTASIS) 10:07: times Medica l 0.05 % 24 daily. Center ophthalmic emulsion diflupredna Yes Apply to [facility] 1-04 eye(s). [facility]ukes (DurezoL) 10:07: Medical 0.05 % Drop 24 Center ezetimibe Yes 10mg QD Take [address] (ZETIA) 10 1-04 by mouth [facility] mg tablet 10:07: daily. Medica l 24 Center fluticasone Yes 1{spray [address] [facility] [address] propionate 1-04 } Nasal [facility] (FLONASE) 10:07: route Medical 50 24 daily as Center mcg/actuati needed for on nasal Rhinitis spray or Allergies . losartan Yes 50mg QD Take [address] (COZAAR) 50 1-04 by mouth Luke s MG tablet 10:07: daily. Medica l 24 Center pantoprazol Yes 20mg QD Take [address] [facility] e 1-04 by mouth [facility] (PROTONIX) 10:07: daily. Medic al 20 MG 24 Center tablet bromfenac Yes Apply to [facility] (Prolensa) 1-04 eye(s). [facility] 0.07 % Drop 10:07: Medica l 24 Center polymyxin B Yes 1[drp] [address] sulf-trimet 1-04 every 4 [facility]ukes hoprim 10:07: (four) Medical 10,000 24 hours. Center unit- 1 mg/mL Drop psyllium Yes 1{packe Q.5D Take [address] (METAMUCIL) 1-04 t} packet by [place] powder 10:07: mouth 2 Medical 24 (two) Center times daily . glucosamine Yes 1{capsu QD Take [address] /chondr green 1-04 le} capsule by [place] es A sod 10:07: mouth Medical (OSTEO 24 daily . Center BI-FLEX ORAL) carboxymeth Yes 1[drp] Place [address] ylcellulose 1-04 drop into [facility] es (REFRESH 10:07: both eyes Medi jluis PLUS) 0.5 % 24 3 (three) [address] [facility] Dpet times ophthalmic daily as solution needed. aspirin 81 Yes 81mg QD Take [address] MG EC 1-04 by mouth [facility] tablet 10:07: daily. Medical 24 Center atorvastati Yes 10mg QD Take [address] n (LIPITOR) 1-04 by mouth Luke s 10 MG 10:07: nightly . Medical tablet 24 Center carvediloL Yes 3.125mg Take 3.[address] (COREG) 1-04 mg by [facility]ukes 3.125 MG 10:07: mouth 2 Medica l tablet 24 (two) Center times daily with breakfast and dinner. clopidogreL Yes 75mg QD Take [address] (PLAVIX) 75 1-04 by mouth Luke s mg tablet 10:07: daily. Medica l 24 Center cycloSPORIN Yes 1[drp] Q.5D [address] [facility] E 1-04 (two) [facility]ukes (RESTASIS) 10:07: times Medica l 0.05 % 24 daily. Center ophthalmic emulsion diflupredna Yes Apply to [facility] 1-04 eye(s). [facility] (DurezoL) 10:07: Medical 0.05 % Drop 24 Center ezetimibe Yes 10mg QD Take [address] (ZETIA) 10 1-04 by mouth [facility] mg tablet 10:07: daily. Medica l 24 Center fluticasone Yes 1{spray [address] [facility] [address] propionate 1 } Nasal [facility] (FLONASE) 10:07: route Medical 50 24 daily as Center mcg/actuati needed for on nasal Rhinitis spray or Allergies . losartan Yes 50mg QD Take [address] (COZAAR) 50 1-04 by mouth Luke s MG tablet 10:07: daily. Medica l 24 Center pantoprazol Yes 20mg QD Take [address] [facility] e 1-04 by mouth [facility] (PROTONIX) 10:07: daily. Medic al 20 MG 24 Center tablet bromfenac Yes Apply to [facility] (Prolensa) 1-04 eye(s). [facility] 0.07 % Drop 10:07: Medica l 24 Center polymyxin B Yes 1[drp] [address] sulf-trimet 1-04 every 4 [facility] hoprim 10:07: (four) Medical 10,000 24 hours. Center unit- 1 mg/mL Drop psyllium Yes 1{packe Q.5D Take [address] (METAMUCIL) 1-04 t} packet by [place] es powder 10:07: mouth 2 Medical 24 (two) Center times daily . glucosamine Yes 1{capsu QD Take [address] /chondr green 1-04 le} capsule by [place] es A sod 10:07: mouth Medical (OSTEO 24 daily . Center BI-FLEX ORAL) carboxymeth Yes 1[drp] Place [address] ylcellulose 1-04 drop into [facility] (REFRESH 10:07: both eyes Medi jluis PLUS) 0.5 % 24 3 (three) [address] [facility] Dpet times ophthalmic daily as solution needed. doxycycline 2020-04 No 20mg Q.5D Take [address] [facility] [address] (PERIOSTAT) 05-14-06 by mouth 2 L ukes 20 MG 09:55: 00:00 (two) Medical tablet 00 :00 times Center daily. doxycycline 2020-04 No 20mg Q.5D Take [address] [facility] (PERIOSTAT) 05-14 by mouth 2 L ukes 20 MG 09:55: 00:00 (two) Medical tablet 00 :00 times Center daily. FLUTICASONE Yes [id number] SPRAY 2 Univers PROPIONATE 8-25 SPRAYS ity of 50 00:00: INTO EACH [place] mcg/actuati 00 NOSTRIL Medic al on nasal EVERY DAY Branch spray FLUTICASONE Yes [id number] SPRAY 2 Univers PROPIONATE 8-25 SPRAYS ity of 50 00:00: INTO EACH [place] mcg/actuati 00 NOSTRIL Medic al on nasal EVERY DAY Branch spray FLUTICASONE Yes [id number] SPRAY 2 Univers PROPIONATE 8-25 SPRAYS ity of 50 00:00: INTO EACH [place] mcg/actuati 00 NOSTRIL Medic al on nasal EVERY DAY Branch spray FLUTICASONE 2021- No [id number] SPRAY 2 Univers PROPIONATE 8-25 09-22 SPRAYS ity of 50 00:00: 00:00 INTO EACH [place] mcg/actuati 00 :00 NOSTRIL Medic al on nasal EVERY DAY Branch spray ezetimibe 2018-04 Yes 10mg Take 10 mg [facility] (ZETIA) 10 1-21 by mouth ity o f mg tablet 12:44: daily. [place] 34 Medical Branch cycloSPORIN 2018-04 Yes 1[drp] Place 1 U nivers E 1-21 Drop in ity of (RESTASIS) 12:44: [place] eyes [place] 0.05 % 34 every 12 Medical drops (twelve) Branch hours. aspirin 2018-04 Yes 81mg Take 81 mg Univ ers (LO-DOSE 1-21 by mouth ity of ASPIRIN) 81 12:44: [place]. [place] mg EC Medical tablet Branch atorvastati 2018-04 Yes 10mg Take 10 mg Univers n (LIPITOR) 1-21 by mouth ity of 10 mg 12:44: daily. [address] losartan 2018-04 Yes 50mg Take 50 mg Uni vers (COZAAR) 50 1-21 by mouth ity of mg tablet 12:44: daily. [address] clopidogrel 2018-04 Yes 75mg Take 75 mg Univers (PLAVIX) 75 -21 by mouth ity of mg tablet 12:44: daily. [address] VITAMIN B 2018-04 Yes Take by Unive rs COMPLEX (B - mouth. ity of COMPLEX 12:44: [facility]) [address] [place] [address] GLUCOSAMINE 2018-04 Yes Take by Uni vers /CHONDR GREEN 1-21 mouth. ity of A SOD 12:44: [place] (OSTEO Medical BI-FLEX [place] ORAL) CARBOXYMETH 2018-[address] in [facility] YLCELLULOSE 1-21 each eye. ity of SODIUM 12:44: [place] (REFRESH Medical OPHTHALMIC) Branch ezetimibe 2018-04 Yes 10mg Take 10 mg [facility] (ZETIA) 10 1-21 by mouth ity o f mg tablet 12:44: daily. [address] cycloSPORIN 2018-04 Yes 1[drp] Place 1 U nivers E 1-21 Drop in ity of (RESTASIS) 12:44: [place] eyes [place] 0.05 % 34 every 12 Medical drops (twelve) Branch hours. aspirin 2018-04 Yes 81mg Take 81 mg Univ ers (LO-DOSE 1-21 by mouth ity of ASPIRIN) 81 12:44: [place]. [place] mg EC Medical tablet Branch atorvastati 2018-04 Yes 10mg Take 10 mg Univers n (LIPITOR) 1-21 by mouth ity of 10 mg 12:44: daily. [address] losartan 2018-04 Yes 50mg Take 50 mg Uni vers (COZAAR) 50 1-21 by mouth ity of mg tablet 12:44: daily. [address] clopidogrel 2018-04 Yes 75mg Take 75 mg Univers (PLAVIX) 75 1-21 by mouth ity of mg tablet 12:44: daily. [address] Branch VITAMIN B 2018-04 Yes Take by Unive rs COMPLEX (B 1-21 mouth. ity of COMPLEX 12:44: [place] ORAL) Medical Branch GLUCOSAMINE 2018-04 Yes Take by Uni vers /CHONDR GREEN 1-21 mouth. ity of A SOD 12:44: [place] ([place] [address] Medical BI-FLEX Branch ORAL) CARBOXYMETH 2018-[address] in Un [facility] YLCELLULOSE 1-21 each eye. ity of SODIUM 12:44: [place] ([place] [address] Medical OPHTHALMIC) Branch ezetimibe 2018-04 Yes 10mg Take 10 mg [facility] (ZETIA) 10 1-21 by mouth ity o f mg tablet 12:44: daily. [address] cycloSPORIN 2018-04 Yes 1[drp] Place 1 U nivers E 1-21 Drop in ity of (RESTASIS) 12:44: both eyes [place] 0.05 % 34 every 12 Medical drops (twelve) Branch hours. aspirin 2018-04 Yes 81mg Take 81 mg Univ ers (LO-DOSE 1-21 by mouth ity of ASPIRIN) 81 12:44: daily. [place] mg EC Medical tablet Branch atorvastati 2018-04 Yes 10mg Take 10 mg Univers n (LIPITOR) - by mouth ity of 10 mg 12:44: daily. [place] [address] Medical Branch losartan 2018-04 Yes 50mg Take 50 mg Uni vers (COZAAR) 50 1-21 by mouth ity of mg tablet 12:44: daily. [address] Branch clopidogrel 2018-04 Yes 75mg Take 75 mg Univers (PLAVIX) 75 -21 by mouth ity of mg tablet 12:44: daily. [address] Branch VITAMIN B 2018-04 Yes Take by Unive rs COMPLEX (B 1-21 mouth. ity of COMPLEX 12:44: [place] ORAL) Medical Branch GLUCOSAMINE 2018-04 Yes Take by Uni vers /CHONDR GREEN 1-21 mouth. ity of A SOD 12:44: [place] [facility] CARBOXYMETH 2018-[address] in Un [facility] YLCELLULOSE 1-21 each eye. ity of SODIUM 12:44: [place] ([place] [address] Medical OPHTHALMIC) Branch ezetimibe 2018-04 Yes 10mg Take 10 mg [facility] (ZETIA) 10 1-21 by mouth ity o f mg tablet 12:44: daily. [address] cycloSPORIN 2018-04 Yes 1[drp] Place 1 U nivers E 1-21 Drop in ity of (RESTASIS) 12:44: [place] 0.05 % 34 every 12 Medical drops (twelve) Branch hours. aspirin 2018-04 Yes 81mg Take 81 mg Univ ers (LO-DOSE 1-21 by mouth ity of ASPIRIN) 81 12:44: [place] [facility] [place] [facility] tablet Branch atorvastati 2018-04 Yes 10mg Take 10 mg Univers n (LIPITOR) -21 by mouth ity of 10 mg 12:44: daily. [address] losartan 2018-04 Yes 50mg Take 50 mg Uni vers (COZAAR) 50 -21 by mouth ity of mg tablet 12:44: daily. [address] clopidogrel 2018-04 Yes 75mg Take 75 mg Univers (PLAVIX) 75 -21 by mouth ity of mg tablet 12:44: daily. [address] VITAMIN B 2018-04 Yes Take by Unive rs COMPLEX (B -21 mouth. ity of COMPLEX 12:44: [address] GLUCOSAMINE 2018-04 Yes Take by Uni vers /CHONDR GREEN 1-21 mouth. ity of A SOD 12:44: [place] (OSTEO Medical BI-FLEX Branch ORAL) CARBOXYMETH 2018-[address] in [facility] YLCELLULOSE 1-21 each eye. ity of SODIUM 12:44: [place] (REFRESH Medical OPHTHALMIC) [place] ezetimibe 2018-04 Yes 10mg Take 10 mg [facility] [place] (ZETIA) 10 1-21 by mouth ity o f mg tablet 12:44: daily. [address] cycloSPORIN 2018-04 Yes 1[drp] Place 1 U nivers E 1-21 Drop in ity of (RESTASIS) 12:44: [place] 0.05 % 34 every 12 Medical drops (twelve) Branch hours. aspirin 2018-04 Yes 81mg Take 81 mg Univ ers (LO-DOSE 1-21 by mouth ity of ASPIRIN) 81 12:44: [place] [facility] tablet Branch atorvastati 2018-04 Yes 10mg Take 10 mg Univers n (LIPITOR) 1-21 by mouth ity of 10 mg 12:44: daily. [address] Branch losartan 2018-04 Yes 50mg Take 50 mg Uni vers (COZAAR) 50 1-21 by mouth ity of mg tablet 12:44: daily. [address] clopidogrel 2018-04 Yes 75mg Take 75 mg Univers (PLAVIX) 75 1-21 by mouth ity of mg tablet 12:44: daily. [address] VITAMIN B 2018-04 Yes Take by Unive rs COMPLEX (B 1- mouth. ity of COMPLEX 12:44: [facility]) [address] [place] [address] GLUCOSAMINE 2018-04 Yes Take by Uni vers /CHONDR GREEN 1-21 mouth. ity of A SOD 12:44: [place] (OSTEO Medical BI-FLEX Branch ORAL) CARBOXYMETH 2018-[address] in [facility] [place] YLCELLULOSE -21 each eye. ity of SODIUM 12:44: [place] (REFRESH Medical OPHTHALMIC) [place] ezetimibe 2018-04 Yes 10mg Take 10 mg [facility] [place] (ZETIA) 10 -21 by mouth ity o f mg tablet 12:44: daily. [address] cycloSPORIN 2018-04 Yes 1[drp] Place 1 U nivers E 1-21 Drop in ity of (RESTASIS) 12:44: [place] 0.05 % 34 every 12 Medical drops (twelve) Branch hours. aspirin 2018-04 Yes 81mg Take 81 mg Univ ers (LO-DOSE 1-21 by mouth ity of ASPIRIN) 81 12:44: [place] [address] [place] [address] Branch atorvastati 2018-04 Yes 10mg Take 10 mg Univers n (LIPITOR) 1-21 by mouth ity of 10 mg 12:44: daily. [address] losartan 2018-04 Yes 50mg Take 50 mg Uni vers (COZAAR) 50 1-21 by mouth ity of mg tablet 12:44: daily. [address] clopidogrel 2018-04 Yes 75mg Take 75 mg Univers (PLAVIX) 75 -21 by mouth ity of mg tablet 12:44: daily. [address] VITAMIN B 2018- Yes Take by Unive rs COMPLEX (B 1-21 mouth. ity of COMPLEX 12:44: [facility]) [address] [place] [address] GLUCOSAMINE 2018-04 Yes Take by Uni vers /CHONDR GREEN 1-21 mouth. ity of A SOD 12:44: [place] ([place] [address] Medical BI-FLEX Branch ORAL) CARBOXYMETH 2018-[address] in [facility] YLCELLULOSE 1-21 each eye. ity of SODIUM 12:44: [place] ([address] OPHTHALMIC) [place] ezetimibe 2018-04 Yes 10mg Take 10 mg [facility] [place] (ZETIA) 10 1-21 by mouth ity o f mg tablet 12:44: daily. [address] cycloSPORIN 2018-04 Yes 1[drp] Place 1 U nivers E 1-21 Drop in ity of (RESTASIS) 12:44: [place] 0.05 % 34 every 12 Medical drops (twelve) Branch hours. aspirin 2018-04 Yes 81mg Take 81 mg Univ ers (LO-DOSE 1-21 by mouth ity of ASPIRIN) 81 12:44: [place]. [place] [facility] [place] Branch atorvastati 2018-04 Yes 10mg Take 10 mg Univers n (LIPITOR) 04-26 by mouth ity of 10 mg 12:44: daily. [address] losartan 2018-04 Yes 50mg Take 50 mg Uni vers (COZAAR) 50 -21 by mouth ity of mg tablet 12:44: daily. [address] clopidogrel 2018-04 Yes 75mg Take 75 mg Univers (PLAVIX) 75 -21 by mouth ity of mg tablet 12:44: daily. [address] VITAMIN B 2018-04 Yes Take by Unive rs COMPLEX (B - mouth. ity of COMPLEX 12:44: [address] GLUCOSAMINE 2018-04 Yes Take by Uni vers /CHONDR GREEN 1-21 mouth. ity of A SOD 12:44: [place] ([place] [address] Medical BI-FLEX Branch ORAL) CARBOXYMETH 2018-[address] in [facility] YLCELLULOSE 1-21 each eye. ity of SODIUM 12:44: [place] ([address] OPHTHALMIC) Branch ezetimibe 2018-04 Yes 10mg Take 10 mg [facility] (ZETIA) 10 1-21 by mouth ity o f mg tablet 12:44: daily. [address] cycloSPORIN 2018-04 Yes 1[drp] Place 1 U nivers E 1-21 Drop in ity of (RESTASIS) 12:44: [place] 0.05 % 34 every 12 Medical drops (twelve) Branch hours. aspirin 2018-04 Yes 81mg Take 81 mg Univ ers (LO-DOSE 1-21 by mouth ity of ASPIRIN) 81 12:44: [place]. [place] [facility] tablet Branch atorvastati 2018-04 Yes 10mg Take 10 mg Univers n (LIPITOR) 1-21 by mouth ity of 10 mg 12:44: daily. [place] [address] Medical Branch losartan 2018-04 Yes 50mg Take 50 mg Uni vers (COZAAR) 50 1-21 by mouth ity of mg tablet 12:44: daily. [address] clopidogrel 2018-04 Yes 75mg Take 75 mg Univers (PLAVIX) 75 -21 by mouth ity of mg tablet 12:44: daily. [address] VITAMIN B 2018-04 Yes Take by Unive rs COMPLEX (B -21 mouth. ity of COMPLEX 12:44: [address] GLUCOSAMINE 2018-04 Yes Take by Uni vers /CHONDR GREEN 1-21 mouth. ity of A SOD 12:44: [place] (OSTEO Medical BI-FLEX Branch ORAL) CARBOXYMETH 2018-[address] in [facility] [place] YLCELLULOSE 1-21 each eye. ity of SODIUM 12:44: [place] (REFRESH Medical OPHTHALMIC) Branch ezetimibe 2018-04 Yes 10mg Take 10 mg [facility] (ZETIA) 10 1-21 by mouth ity o f mg tablet 12:44: daily. [address] cycloSPORIN 2018-04 Yes 1[drp] Place 1 U nivers E 1-21 Drop in ity of (RESTASIS) 12:44: [place] 0.05 % 34 every 12 Medical drops (twelve) Branch hours. aspirin 2018-04 Yes 81mg Take 81 mg Univ ers (LO-DOSE 1-21 by mouth ity of ASPIRIN) 81 12:44: [place]. [place] [facility] tablet Branch atorvastati 2018-04 Yes 10mg Take 10 mg Univers n (LIPITOR) 1-21 by mouth ity of 10 mg 12:44: daily. [place] [address] Medical [place] losartan 2018-04 Yes 50mg Take 50 mg Uni vers (COZAAR) 50 1-21 by mouth ity of mg tablet 12:44: daily. [address] clopidogrel 2019-1 Yes 75mg Take 75 mg Univers (PLAVIX) 75 -21 by mouth ity of mg tablet 12:44: daily. [address] Branch VITAMIN B 2018-04 Yes Take by Unive rs COMPLEX (B 1-21 mouth. ity of COMPLEX 12:44: [place] ORAL) Medical Branch GLUCOSAMINE 2018-04 Yes Take by Uni vers /CHONDR GREEN 1-21 mouth. ity of A SOD 12:44: [place] ([facility] Branch ORAL) CARBOXYMETH 2018-[address] in [facility] [place] YLCELLULOSE 1-21 each eye. ity of SODIUM 12:44: [place] ([place] [address] Medical OPHTHALMIC) Branch ezetimibe 2018-04 Yes 10mg Take 10 mg [facility] (ZETIA) 10 -21 by mouth ity o f mg tablet 12:44: daily. [address] Branch cycloSPORIN 2018-04 Yes 1[drp] Place 1 U nivers E 1-21 Drop in ity of (RESTASIS) 12:44: [place] 0.05 % 34 every 12 Medical drops (twelve) Branch hours. aspirin 2018-04 Yes 81mg Take 81 mg Univ ers (LO-DOSE - by mouth ity of ASPIRIN) 81 12:44: [place]. [place] [facility] tablet Branch atorvastati 2018-04 Yes 10mg Take 10 mg Univers n (LIPITOR) 04-26 by mouth ity of 10 mg 12:44: daily. [place] [address] Medical Branch losartan 2018-04 Yes 50mg Take 50 mg Uni vers (COZAAR) 50 - by mouth ity of mg tablet 12:44: daily. [address] Branch clopidogrel 2018-04 Yes 75mg Take 75 mg Univers (PLAVIX) 75 -21 by mouth ity of mg tablet 12:44: daily. [address] Branch VITAMIN B 2018- Yes Take by Unive rs COMPLEX (B 1-21 mouth. ity of COMPLEX 12:44: [place] ORAL) [address] [place] [address] Branch GLUCOSAMINE 2018-04 Yes Take by Uni vers /CHONDR GREEN 1-21 mouth. ity of A SOD 12:44: [place] ([facility] Medical BI-FLEX Branch ORAL) CARBOXYMETH 2018-[address] in [facility] [place] YLCELLULOSE 1-21 each eye. ity of SODIUM 12:44: [place] ([place] [address] Medical OPHTHALMIC) Branch ezetimibe 2018-04 Yes 10mg Take 10 mg [facility] [place] (ZETIA) 10 1-21 by mouth ity o f mg tablet 12:44: daily. [address] cycloSPORIN 2018-04 Yes 1[drp] Place 1 U nivers E 1-21 Drop in ity of (RESTASIS) 12:44: [place] 0.05 % 34 every 12 Medical drops (twelve) Branch hours. aspirin 2018-04 Yes 81mg Take 81 mg Univ ers (LO-DOSE 1-21 by mouth ity of ASPIRIN) 81 12:44: [place]. [place] [facility] tablet Branch atorvastati 2018-04 Yes 10mg Take 10 mg Univers n (LIPITOR) 1-21 by mouth ity of 10 mg 12:44: daily. [address] losartan 2018-04 Yes 50mg Take 50 mg Uni vers (COZAAR) 50 1-21 by mouth ity of mg tablet 12:44: daily. [address] clopidogrel 2018-04 Yes 75mg Take 75 mg Univers (PLAVIX) 75 -21 by mouth ity of mg tablet 12:44: daily. [address] VITAMIN B 2018-04 Yes Take by Unive rs COMPLEX (B 1-21 mouth. ity of COMPLEX 12:44: [address] GLUCOSAMINE 2018-04 Yes Take by Uni vers /CHONDR GREEN 1-21 mouth. ity of A SOD 12:44: [place] (OSTEO Medical BI-FLEX Branch ORAL) CARBOXYMETH 2018-[address] in [facility] YLCELLULOSE 1-21 each eye. ity of SODIUM 12:44: [place] (REFRESH Medical OPHTHALMIC) Branch ezetimibe 2018-04 Yes 10mg Take 10 mg [facility] (ZETIA) 10 1-21 by mouth ity o f mg tablet 12:44: daily. [address] cycloSPORIN 2018-04 Yes 1[drp] Place 1 U nivers E 1-21 Drop in ity of (RESTASIS) 12:44: [place] 0.05 % 34 every 12 Medical drops (twelve) Branch hours. aspirin 2018-04 Yes 81mg Take 81 mg Univ ers (LO-DOSE 1-21 by mouth ity of ASPIRIN) 81 12:44: [place]. [place] [facility] tablet Branch atorvastati 2018-04 Yes 10mg Take 10 mg Univers n (LIPITOR) 1-21 by mouth ity of 10 mg 12:44: daily. [address] Branch losartan 2018-04 Yes 50mg Take 50 mg Uni vers (COZAAR) 50 1-21 by mouth ity of mg tablet 12:44: daily. [address] clopidogrel 2018-04 Yes 75mg Take 75 mg Univers (PLAVIX) 75 -21 by mouth ity of mg tablet 12:44: daily. [address] VITAMIN B 2018-04 Yes Take by Unive rs COMPLEX (B 1-21 mouth. ity of COMPLEX 12:44: [facility]) [address] [place] [address] GLUCOSAMINE 2018-04 Yes Take by Uni vers /CHONDR GREEN 1-21 mouth. ity of A SOD 12:44: [place] (OSTEO Medical BI-FLEX [place] ORAL) CARBOXYMETH 2018-[address] in [facility] YLCELLULOSE -21 each eye. ity of SODIUM 12:44: [place] (REFRESH [address] [place] [address] OPHTHALMIC) [place] ezetimibe 2018-04 Yes 10mg Take 10 mg [facility] [place] (ZETIA) 10 - by mouth ity o f mg tablet 12:44: daily. [address] cycloSPORIN 2018-04 Yes 1[drp] Place 1 U nivers E 1-21 Drop in ity of (RESTASIS) 12:44: [place] 0.05 % 34 every 12 Medical drops (twelve) Branch hours. aspirin 2018-04 Yes 81mg Take 81 mg Univ ers (LO-DOSE 1-21 by mouth ity of ASPIRIN) 81 12:44: [place]. [place] [address] [place] [address] Branch atorvastati 2018-04 Yes 10mg Take 10 mg Univers n (LIPITOR) 1-21 by mouth ity of 10 mg 12:44: daily. [address] losartan 2018-04 Yes 50mg Take 50 mg Uni vers (COZAAR) 50 1-21 by mouth ity of mg tablet 12:44: daily. [address] clopidogrel 2018-04 Yes 75mg Take 75 mg Univers (PLAVIX) 75 1-21 by mouth ity of mg tablet 12:44: daily. [address] VITAMIN B 2018- Yes Take by Unive rs COMPLEX (B 1-21 mouth. ity of COMPLEX 12:44: [facility]) 34 Medical Branch GLUCOSAMINE 2018-04 Yes Take by Uni vers /CHONDR GREEN -21 mouth. ity of A SOD 12:44: [place] ([place] [address] Medical BI-FLEX Branch ORAL) CARBOXYMETH 2018-[address] in [facility] [place] YLCELLULOSE 1-21 each eye. ity of SODIUM 12:44: [place] ([address] OPHTHALMIC) [place] ezetimibe 2018-04 Yes 10mg Take 10 mg [facility] [place] (ZETIA) 10 -21 by mouth ity o f mg tablet 12:44: daily. [address] cycloSPORIN 2018-04 Yes 1[drp] Place 1 U nivers E 1-21 Drop in ity of (RESTASIS) 12:44: [place] 0.05 % 34 every 12 Medical drops (twelve) Branch hours. aspirin 2018-04 Yes 81mg Take 81 mg Univ ers (LO-DOSE 04-26 by mouth ity of ASPIRIN) 81 12:44: [place]. [place] [address] [place] [address] tablet [place] atorvastati 2018-04 Yes 10mg Take 10 mg Univers n (LIPITOR) 04-26 by mouth ity of 10 mg 12:44: daily. [address] losartan 2018-04 Yes 50mg Take 50 mg Uni vers (COZAAR) 50 04-26 by mouth ity of mg tablet 12:44: daily. [address] clopidogrel 2018-04 Yes 75mg Take 75 mg Univers (PLAVIX) 75 04-26 by mouth ity of mg tablet 12:44: daily. [address] VITAMIN B 2018-04 Yes Take by Unive rs COMPLEX (B 04-26 mouth. ity of COMPLEX 12:44: [address] GLUCOSAMINE 2018-04 Yes Take by Uni vers /CHONDR GREEN 1-21 mouth. ity of A SOD 12:44: [place] ([place] [address] Medical BI-FLEX Branch ORAL) CARBOXYMETH 2018-[address] in [facility] [place] YLCELLULOSE 1-21 each eye. ity of SODIUM 12:44: [place] ([address] OPHTHALMIC) [place] ezetimibe 2018-04 Yes 10mg Take 10 mg [facility] (ZETIA) 10 1-21 by mouth ity o f mg tablet 12:44: daily. [address] cycloSPORIN 2018-04 Yes 1[drp] Place 1 U nivers E 1-21 Drop in ity of (RESTASIS) 12:44: [place] 0.05 % 34 every 12 Medical drops (twelve) Branch hours. aspirin 2018-04 Yes 81mg Take 81 mg Univ ers (LO-DOSE 1-21 by mouth ity of ASPIRIN) 81 12:44: [place]. [place] [facility] [place] [facility] tablet Branch atorvastati 2018-04 Yes 10mg Take 10 mg Univers n (LIPITOR) 1-21 by mouth ity of 10 mg 12:44: daily. [address] losartan 2018-04 Yes 50mg Take 50 mg Uni vers (COZAAR) 50 1-21 by mouth ity of mg tablet 12:44: daily. [address] clopidogrel 2018-04 Yes 75mg Take 75 mg Univers (PLAVIX) 75 -21 by mouth ity of mg tablet 12:44: daily. [address] VITAMIN B 2018-04 Yes Take by Unive rs COMPLEX (B -21 mouth. ity of COMPLEX 12:44: [address] GLUCOSAMINE 2018-04 Yes Take by Uni vers /CHONDR GREEN 1-21 mouth. ity of A SOD 12:44: [place] (OSTEO Medical BI-FLEX Branch ORAL) CARBOXYMETH 2018-[address] in [facility] [place] YLCELLULOSE 1-21 each eye. ity of SODIUM 12:44: [place] (REFRESH [address] [place] [address] OPHTHALMIC) Branch ezetimibe 2018-04 Yes 10mg Take 10 mg [facility] [place] (ZETIA) 10 1-21 by mouth ity o f mg tablet 12:44: daily. [address] cycloSPORIN 2018-04 Yes 1[drp] Place 1 U nivers E 1-21 Drop in ity of (RESTASIS) 12:44: [place] 0.05 % 34 every 12 Medical drops (twelve) Branch hours. aspirin 2018-04 Yes 81mg Take 81 mg Univ ers (LO-DOSE 1-21 by mouth ity of ASPIRIN) 81 12:44: [place]. [place] [facility] tablet Branch atorvastati 2018-04 Yes 10mg Take 10 mg Univers n (LIPITOR) 1-21 by mouth ity of 10 mg 12:44: daily. [address] losartan 2018-04 Yes 50mg Take 50 mg Uni vers (COZAAR) 50 1-21 by mouth ity of mg tablet 12:44: daily. [address] clopidogrel 2018- Yes 75mg Take 75 mg Univers (PLAVIX) 75 1-21 by mouth ity of mg tablet 12:44: daily. [address] VITAMIN B 2018-04 Yes Take by Unive rs COMPLEX (B -21 mouth. ity of COMPLEX 12:44: [place] ORAL) [address] [place] [address] GLUCOSAMINE 2018-04 Yes Take by Uni vers /CHONDR GREEN 1-21 mouth. ity of A SOD 12:44: [place] (OSTEO Medical BI-FLEX [place] ORAL) CARBOXYMETH 2018-[address] in [facility] [place] YLCELLULOSE 1-21 each eye. ity of SODIUM 12:44: [place] (REFRESH [address] [place] [address] OPHTHALMIC) [place] pantoprazol 2017-04 Yes Univer s e 20 mg EC 1-14 ity of tablet 00:00: [address] pantoprazol 2017-04 Yes Univer s e 20 mg EC 1-14 ity of tablet 00:00: [address] pantoprazol 2017-04 Yes Univer s e 20 mg EC 1-14 ity of tablet 00:00: [address] pantoprazol 2017-04 Yes Univer s e 20 mg EC 1-14 ity of tablet 00:00: [address] pantoprazol 2017-04 Yes Univer s e 20 mg EC 1-14 ity of tablet 00:00: [address] pantoprazol 2017-04 Yes Univer s e 20 mg EC 1-14 ity of tablet 00:00: [address] pantoprazol 2017-04 Yes Univer s e 20 mg EC 1-14 ity of tablet 00:00: [address] pantoprazol 2017-04 Yes Univer s e 20 mg EC 1-14 ity of tablet 00:00: [address] pantoprazol 2017-04 Yes Univer s e 20 mg EC 1-14 ity of tablet 00:00: [address] pantoprazol 2017-04 Yes Univer s e 20 mg EC 1-14 ity of tablet 00:00: [address] pantoprazol 2017-04 Yes Univer s e 20 mg EC 1-14 ity of tablet 00:00: [address] pantoprazol 2017-04 Yes Univer s e 20 mg EC 1-14 ity of tablet 00:00: [place] 00 [facility] Branch pantoprazol 2017-04 Yes Univer s e 20 mg EC 1-14 ity of tablet 00:00: [place] 00 Medical Branch pantoprazol 2017-04 Yes Univer s e 20 mg EC 1-14 ity of tablet 00:00: [place] 00 Medical Branch pantoprazol 2017-04 Yes Univer s e 20 mg EC 1-14 ity of tablet 00:00: [place] 00 Medical Branch pantoprazol 2017-04 Yes Univer s e 20 mg EC 1-14 ity of tablet 00:00: [place] 00 [facility] Branch carvedilol 2015-04 Yes 3.125mg Take 1 [facility] [place] (COREG) 1-23 tablet by ity of 3.125 mg 00:00: mouth [place] tablet 00 daily. Medical Branch carvedilol 2015-04 Yes 3.125mg Take 1 [facility] [place] (COREG) 1-23 tablet by ity of 3.125 mg 00:00: mouth [place] tablet 00 daily. Medical Branch carvedilol 2015-04 Yes 3.125mg Take 1 [facility] [place] (COREG) 1-23 tablet by ity of 3.125 mg 00:00: mouth [place] tablet 00 daily. Medical Branch carvedilol 2015-04 Yes 3.125mg Take 1 [facility] [place] (COREG) 1-23 tablet by ity of 3.125 mg 00:00: mouth [place] tablet 00 daily. Medical Branch carvedilol 2015-04 Yes 3.125mg Take 1 [facility] [place] (COREG) 1-23 tablet by ity of 3.125 mg 00:00: mouth [place] tablet 00 daily. Medical Branch carvedilol 2015-04 Yes 3.125mg Take 1 [facility] [place] (COREG) 1-23 tablet by ity of 3.125 mg 00:00: mouth [place] tablet 00 daily. Medical Branch carvedilol 2015-04 Yes 3.125mg Take 1 [facility] [place] (COREG) 1-23 tablet by ity of 3.125 mg 00:00: mouth [place] tablet 00 daily. Medical Branch carvedilol 2015-04 Yes 3.125mg Take 1 [facility] [place] (COREG) 1-23 tablet by ity of 3.125 mg 00:00: mouth [place] tablet 00 daily. Medical Branch carvedilol 2015-04 Yes 3.125mg Take 1 [place] (COREG) 1-23 tablet by ity of 3.125 mg 00:00: mouth [place] tablet 00 daily. Medical Branch carvedilol 2015-04 Yes 3.125mg Take 1 [facility] [place] (COREG) 1-23 tablet by ity of 3.125 mg 00:00: mouth [place] tablet 00 daily. Medical Branch carvedilol 2015-04 Yes 3.125mg Take 1 [facility] [place] (COREG) 1-23 tablet by ity of 3.125 mg 00:00: mouth [place] tablet 00 daily. Medical Branch carvedilol 2015-04 Yes 3.125mg Take 1 [facility] [place] (COREG) 1-23 tablet by ity of 3.125 mg 00:00: mouth [place] tablet 00 daily. Medical Branch carvedilol 2015-04 Yes 3.125mg Take 1 [facility] [place] (COREG) 1-23 tablet by ity of 3.125 mg 00:00: mouth [place] tablet 00 daily. Medical Branch carvedilol 2015-04 Yes 3.125mg Take 1 [facility] [place] (COREG) 1-23 tablet by ity of 3.125 mg 00:00: mouth [place] tablet 00 daily. Medical Branch carvedilol 2015-04 Yes 3.125mg Take 1 [facility] [place] (COREG) 1-23 tablet by ity of 3.125 mg 00:00: mouth [place] tablet 00 daily. Medical Branch carvedilol 2015-04 Yes 3.125mg Take 1 [facility] (COREG) 1-23 tablet by ity of 3.125 mg 00:00: mouth [place] tablet 00 daily. [facility] Immunizations Ordered Filled Immunization Date Status Comments [facility] e Immunization Name Name Influenza Virus 2022-02-17 Completed Universit y of Vaccine,quad 00:00:00 [place] [facility] 65+ Influenza Virus 2022-02-17 Completed Universit y of Vaccine,quad 00:00:00 [place] [facility] Branch 65+ Influenza Virus 2022-02-17 Completed Universit y of Vaccine,quad 00:00:00 [place] [facility] Branch 65+ Influenza Virus 2022-02-17 Completed Universit y of Vaccine,quad 00:00:00 [place] [facility] Branch 65+ Influenza Virus 2022-02-17 Completed Universit y of Vaccine,quad 00:00:00 [place] [facility] Branch 65+ Influenza Virus 2022-02-17 Completed Universit y of Vaccine,quad 00:00:00 [place] [facility] Branch 65+ Influenza Virus 2022-02-17 Completed Universit y of Vaccine,quad 00:00:00 [place] [facility] Branch 65+ Influenza Virus 2022-02-17 Completed Universit y of Vaccine,quad 00:00:00 [place] [facility] Branch 65+ SARS-COV-2 COVID-19 2021-10-11 Completed Unive rsity of PFIZER AMADA-SUCROSE 00:00:00 [place] [facility] VACCINE (MEDINA TOP) Branch SARS-COV-2 COVID-19 2021-10-11 Completed Unive rsity of PFIZER AMADA-SUCROSE 00:00:00 [place] [facility] VACCINE (MEDINA TOP) Branch SARS-COV-2 COVID-19 2021-10-11 Completed Unive rsity of PFIZER AMADA-SUCROSE 00:00:00 [place] [facility] VACCINE (MEDINA TOP) Branch SARS-COV-2 COVID-19 2021-10-11 Completed Unive rsity of PFIZER AMADA-SUCROSE 00:00:00 [place] [facility] VACCINE (MEDINA TOP) Branch SARS-COV-2 COVID-19 2021-10-11 Completed Unive rsity of PFIZER AMADA-SUCROSE 00:00:00 [place] [facility] VACCINE (MEDINA TOP) Branch SARS-COV-2 COVID-19 2021-10-11 Completed Unive rsity of PFIZER AMADA-SUCROSE 00:00:00 [place] [facility] VACCINE (MEDINA TOP) Branch SARS-COV-2 COVID-19 2021-10-11 Completed Unive rsity of PFIZER AMADA-SUCROSE 00:00:00 [place] [facility] VACCINE (MEDINA TOP) Branch SARS-COV-2 COVID-19 2021-10-11 Completed Unive rsity of PFIZER AMADA-SUCROSE 00:00:00 [place] [facility] VACCINE (MEDINA TOP) Branch SARS-COV-2 COVID-19 2021-10-11 Completed Unive rsity of PFIZER AMADA-SUCROSE 00:00:00 [place] [facility] VACCINE (MEDINA TOP) Branch SARS-COV-2 COVID-19 2021-10-11 Completed Unive rsity of PFIZER AMADA-SUCROSE 00:00:00 [place] [facility] VACCINE (MEDINA TOP) Branch SARS-COV-2 COVID-19 2021-10-11 Completed Unive rsity of PFIZER AMADA-SUCROSE 00:00:00 [place] [facility] VACCINE (MEDINA TOP) Branch SARS-COV-2 COVID-19 2021-10-11 Completed Unive rsity of PFIZER AMADA-SUCROSE 00:00:00 [place] [facility] VACCINE (MEDINA TOP) Branch SARS-COV-2 COVID-19 2021-10-11 Completed Unive rsity of PFIZER AMADA-SUCROSE 00:00:00 [place] [facility] VACCINE (MEDINA TOP) Branch SARS-COV-2 COVID-19 2021-10-11 Completed Unive rsity of PFIZER AMADA-SUCROSE 00:00:00 [place] [facility] VACCINE (MEDINA TOP) Branch SARS-COV-2 COVID-19 2021-10-11 Completed Unive rsity of PFIZER AMADA-SUCROSE 00:00:00 [place] [facility] VACCINE (MEDINA TOP) Branch SARS-COV-2 COVID-19 2021-10-11 Completed Unive rsity of PFIZER AMADA-SUCROSE 00:00:00 [place] [facility] VACCINE (MEDINA TOP) Branch SARS-COV-2 COVID-19 2021-02-25 Completed Unive rsity of PFIZER VACCINE 00:00:00 [place] [facility] Branch SARS-COV-2 COVID-19 2021-02-25 Completed Unive rsity of PFIZER VACCINE 00:00:00 [place] [facility] Branch SARS-COV-2 COVID-19 2021-02-25 Completed Unive rsity of PFIZER VACCINE 00:00:00 [place] [facility] Branch SARS-COV-2 COVID-19 2021-02-25 Completed Unive rsity of PFIZER VACCINE 00:00:00 [place] [facility] Branch SARS-COV-2 COVID-19 2021-02-25 Completed Unive rsity of PFIZER VACCINE 00:00:00 [place] [facility] Branch SARS-COV-2 COVID-19 2021-02-25 Completed Unive rsity of PFIZER VACCINE 00:00:00 [place] [facility] Branch SARS-COV-2 COVID-19 2021-02-25 Completed Unive rsity of PFIZER VACCINE 00:00:00 [place] [facility] Branch SARS-COV-2 COVID-19 2021-02-25 Completed Unive rsity of PFIZER VACCINE 00:00:00 [place] [facility] Branch SARS-COV-2 COVID-19 2021-02-25 Completed Unive rsity of PFIZER VACCINE 00:00:00 [place] [facility] Branch SARS-COV-2 COVID-19 2021-02-25 Completed Unive rsity of PFIZER VACCINE 00:00:00 [facility] Branch SARS-COV-2 COVID-19 2021-02-25 Completed Unive rsity of PFIZER VACCINE 00:00:00 [facility] Branch SARS-COV-2 COVID-19 2021-02-25 Completed Unive rsity of PFIZER VACCINE 00:00:00 [place] [facility] [facility] SARS-COV-2 COVID-19 2021-02-25 Completed Unive rsity of PFIZER VACCINE 00:00:00 [facility] SARS-COV-2 COVID-19 2021-02-25 Completed Unive rsity of PFIZER VACCINE 00:00:00 [facility] SARS-COV-2 COVID-19 2021-02-25 Completed Unive rsity of PFIZER VACCINE 00:00:00 [facility] SARS-COV-2 COVID-19 2021-02-25 Completed Unive rsity of PFIZER VACCINE 00:00:00 [facility] SARS-COV-2 COVID-19 2020-07-05 Completed Unive rsity of PFIZER VACCINE 00:00:00 [facility] SARS-COV-2 COVID-19 2020-07-05 Completed Unive rsity of PFIZER VACCINE 00:00:00 [facility] SARS-COV-2 COVID-19 2020-07-05 Completed Unive rsity of PFIZER VACCINE 00:00:00 [facility] SARS-COV-2 COVID-19 2020-07-05 Completed Unive rsity of PFIZER VACCINE 00:00:00 [facility] SARS-COV-2 COVID-19 2020-07-05 Completed Unive rsity of PFIZER VACCINE 00:00:00 [facility] SARS-COV-2 COVID-19 2020-07-05 Completed Unive rsity of PFIZER VACCINE 00:00:00 [facility] SARS-COV-2 COVID-19 2020-07-05 Completed Unive rsity of PFIZER VACCINE 00:00:00 [facility] SARS-COV-2 COVID-19 2020-07-05 Completed Unive rsity of PFIZER VACCINE 00:00:00 [facility] SARS-COV-2 COVID-19 2020-07-05 Completed Unive rsity of PFIZER VACCINE 00:00:00 [facility] SARS-COV-2 COVID-19 2020-07-05 Completed Unive rsity of PFIZER VACCINE 00:00:00 [facility] SARS-COV-2 COVID-19 2020-07-05 Completed Unive rsity of PFIZER VACCINE 00:00:00 [facility] SARS-COV-2 COVID-19 2020-07-05 Completed Unive rsity of PFIZER VACCINE 00:00:00 [facility] SARS-COV-2 COVID-19 2020-07-05 Completed Unive rsity of PFIZER VACCINE 00:00:00 [facility] SARS-COV-2 COVID-19 2020-07-05 Completed Unive rsity of PFIZER VACCINE 00:00:00 [facility] SARS-COV-2 COVID-19 2020-07-05 Completed Unive rsity of PFIZER VACCINE 00:00:00 [facility] SARS-COV-2 COVID-19 2020-07-05 Completed Unive rsity of PFIZER VACCINE 00:00:00 [facility] SARS-COV-2 COVID-19 2020-06-14 Completed Unive rsity of PFIZER VACCINE 00:00:00 [facility] SARS-COV-2 COVID-19 2020-06-14 Completed Unive rsity of PFIZER VACCINE 00:00:00 [facility] SARS-COV-2 COVID-19 2020-06-14 Completed Unive rsity of PFIZER VACCINE 00:00:00 [facility] SARS-COV-2 COVID-19 2020-06-14 Completed Unive rsity of PFIZER VACCINE 00:00:00 [facility] SARS-COV-2 COVID-19 2020-06-14 Completed Unive rsity of PFIZER VACCINE 00:00:00 [facility] SARS-COV-2 COVID-19 2020-06-14 Completed Unive rsity of PFIZER VACCINE 00:00:00 [facility] SARS-COV-2 COVID-19 2020-06-14 Completed Unive rsity of PFIZER VACCINE 00:00:00 [facility] SARS-COV-2 COVID-19 2020-06-14 Completed Unive rsity of PFIZER VACCINE 00:00:00 [facility] SARS-COV-2 COVID-19 2020-06-14 Completed Unive rsity of PFIZER VACCINE 00:00:00 [facility] SARS-COV-2 COVID-19 2020-06-14 Completed Unive rsity of PFIZER VACCINE 00:00:00 [facility] SARS-COV-2 COVID-19 2020-06-14 Completed Unive rsity of PFIZER VACCINE 00:00:00 [facility] SARS-COV-2 COVID-19 2020-06-14 Completed Unive rsity of PFIZER VACCINE 00:00:00 [facility] SARS-COV-2 COVID-19 2020-06-14 Completed Unive rsity of PFIZER VACCINE 00:00:00 [facility] SARS-COV-2 COVID-19 2020-06-14 Completed Unive rsity of PFIZER VACCINE 00:00:00 [facility] SARS-COV-2 COVID-19 2020-06-14 Completed Unive rsity of PFIZER VACCINE 00:00:00 [facility] SARS-COV-2 COVID-19 2020-06-14 Completed Unive rsity of PFIZER VACCINE 00:00:00 [facility] Influenza High Dose 2020-02-15 Completed Unive rsity of Quad 00:00:00 [facility] Pneumococcal 2020-02-15 Completed University o f Polysaccharide, 00:00:00 [facility] PPSV23 (PNEUMOVAX) Branch Influenza High Dose 2020-02-15 Completed Unive rsity of Quad 00:00:00 [facility] Pneumococcal 2020-02-15 Completed University o f Polysaccharide, 00:00:00 [facility] PPSV23 (PNEUMOVAX) Branch Influenza High Dose 2020-02-15 Completed Unive rsity of Quad 00:00:00 [facility] Pneumococcal 2020-02-15 Completed University o f Polysaccharide, 00:00:00 [facility] PPSV23 (PNEUMOVAX) Branch Influenza High Dose 2020-02-15 Completed Unive rsity of Quad 00:00:00 [facility] Pneumococcal 2020-02-15 Completed University o f Polysaccharide, 00:00:00 [facility] PPSV23 (PNEUMOVAX) Branch Influenza High Dose 2020-02-15 Completed Unive rsity of Quad 00:00:00 [facility] Pneumococcal 2020-02-15 Completed University o f Polysaccharide, 00:00:00 [facility] PPSV23 (PNEUMOVAX) Branch Influenza High Dose 2020-02-15 Completed Unive rsity of Quad 00:00:00 [facility] Pneumococcal 2020-02-15 Completed University o f Polysaccharide, 00:00:00 [facility] PPSV23 (PNEUMOVAX) [facility] Influenza High Dose 2020-02-15 Completed Unive rsity of [facility] 00:00:00 [facility] Pneumococcal 2020-02-15 Completed University o f Polysaccharide, 00:00:00 [facility] PPSV23 (PNEUMOVAX) [facility] Influenza High Dose 2020-02-15 Completed [facility] of [facility] 00:00:00 [facility] Pneumococcal 2020-02-15 Completed University o f Polysaccharide, 00:00:00 [facility] PPSV23 (PNEUMOVAX) [facility] Influenza High Dose 2020-02-15 Completed [facility]ive rsity of [facility] 00:00:00 [facility] Pneumococcal 2020-02-15 Completed University o f Polysaccharide, 00:00:00 [facility] PPSV23 (PNEUMOVAX) [facility] Influenza High Dose 2020-02-15 Completed [facility]ity of [facility] 00:00:00 [facility] Pneumococcal 2020-02-15 Completed University o f Polysaccharide, 00:00:00 [facility] PPSV23 (PNEUMOVAX) [facility] Influenza High Dose 2020-02-15 Completed [facility] of [facility] 00:00:00 [facility] Pneumococcal 2020-02-15 Completed University o f Polysaccharide, 00:00:00 [facility] PPSV23 (PNEUMOVAX) Branch Influenza High Dose 2020-02-15 Completed [facility] of [facility] 00:00:00 [facility] Pneumococcal 2020-02-15 Completed University o f Polysaccharide, 00:00:00 [facility] PPSV23 (PNEUMOVAX) Branch Influenza High Dose 2020-02-15 Completed [facility] of [facility] 00:00:00 [facility] Pneumococcal 2020-02-15 Completed University o f Polysaccharide, 00:00:00 [facility] PPSV23 (PNEUMOVAX) Branch Influenza High Dose 2020-02-15 Completed [facility] of [facility] 00:00:00 [facility] Pneumococcal 2020-02-15 Completed University o f Polysaccharide, 00:00:00 [facility] PPSV23 (PNEUMOVAX) Branch Influenza High Dose 2020-02-15 Completed [facility]ive rsity of [facility] 00:00:00 [facility] Pneumococcal 2020-02-15 Completed University o f Polysaccharide, 00:00:00 [facility] ical PPSV23 (PNEUMOVAX) Branch Influenza High Dose 2020-02-15 Completed Unive rsity of Quad 00:00:00 [facility] Pneumococcal 2020-02-15 Completed [place] o f Polysaccharide, 00:00:00 [facility] ical PPSV23 (PNEUMOVAX) Branch TDAP (ADACEL) 2018-04-06 Completed University of VACCINE 00:00:00 [facility] TDAP (ADACEL) 2018-04-06 Completed University of VACCINE 00:00:00 [facility] TDAP (ADACEL) 2018-04-06 Completed University of VACCINE 00:00:00 [facility] TDAP (ADACEL) 2018-04-06 Completed University of VACCINE 00:00:00 [facility] TDAP (ADACEL) 2018-04-06 Completed University of VACCINE 00:00:00 [facility] TDAP (ADACEL) 2018-04-06 Completed University of VACCINE 00:00:00 [facility] TDAP (ADACEL) 2018-04-06 Completed University of VACCINE 00:00:00 [facility] TDAP (ADACEL) 2018-04-06 Completed University of VACCINE 00:00:00 [facility] TDAP (ADACEL) 2018-04-06 Completed University of VACCINE 00:00:00 [facility] TDAP (ADACEL) 2018-04-06 Completed University of VACCINE 00:00:00 [facility] TDAP (ADACEL) 2018-04-06 Completed University of VACCINE 00:00:00 [facility] TDAP (ADACEL) 2018-04-06 Completed University of VACCINE 00:00:00 [facility] TDAP (ADACEL) 2018-04-06 Completed University of VACCINE 00:00:00 [facility] TDAP (ADACEL) 2018-04-06 Completed University of VACCINE 00:00:00 [facility] TDAP (ADACEL) 2018-04-06 Completed University of VACCINE 00:00:00 [facility] TDAP (ADACEL) 2018-04-06 Completed University of VACCINE 00:00:00 [facility] Vital Signs Vital Name Observation Time Observation Value Comments Source HEIGHT 2021-04-03 14:19:00 180.3 cm WEIGHT 2021-04-03 14:19:00 88.451 kg HEIGHT 2021-03-25 11:43:00 180.3 cm WEIGHT 2021-03-25 11:43:00 88.451 kg Systolic blood 2022-04-09 15:02:00 142 mm[Hg] Univer sity of pressure [facility] Diastolic blood 2022-04-09 15:02:00 85 mm[Hg] [facility]ity of pressure [facility] Heart rate 2022-04-09 15:02:00 67 /min [facility] Body temperature 2022-04-09 14:58:00 36.61 Maria Teresa Univ ers[facility] Respiratory rate 2022-04-09 14:58:00 17 /min Univ ers[facility] Body height 2022-04-09 14:58:00 180.3 cm [facility] Body weight 2022-04-09 14:58:00 91.763 kg [facility] BMI 2022-04-09 14:58:00 28.22 kg/m2 Universi ty of [facility] Oxygen saturation in 2022-04-09 14:58:00 97 /min University of Arterial blood by [facility] Pulse oximetry Branch Systolic blood 2022-02-17 13:05:00 127 mm[Hg] Univer sity of pressure [facility] Diastolic blood 2022-02-17 13:05:00 79 mm[Hg] Unive rsity of pressure [facility] Heart rate 2022-02-17 13:05:00 67 /min [facility] Body height 2022-02-17 13:05:00 180.3 cm [facility] Body weight 2022-02-17 13:05:00 89.404 kg [facility] BMI 2022-02-17 13:05:00 27.49 kg/m2 [facility] Systolic blood 2021-12-11 14:24:00 130 mm[Hg] Univer [facility]ity of pressure [facility] Diastolic blood 2021-12-11 14:24:00 79 mm[Hg] Unive rsity of pressure [facility] Heart rate 2021-12-11 14:24:00 66 /min [facility] Body temperature 2021-12-11 14:19:00 36.56 Maria Teresa [facility] Respiratory rate 2021-12-11 14:19:00 16 /min [facility] Body height 2021-12-11 14:19:00 180.3 [facility] Body weight 2021-12-11 14:19:00 90.719 kg [facility] BMI 2021-12-11 14:19:00 27.89 kg/m2 [facility] Oxygen saturation in 2021-12-11 14:19:00 95 /min [facility] Arterial blood by [facility] Pulse oximetry Branch HEIGHT 2021-04-03 14:19:00 180.3 cm WEIGHT 2021-04-03 14:19:00 88.451 kg HEIGHT 2021-03-25 11:43:00 180.3 cm WEIGHT 2021-03-25 11:43:00 88.451 kg WEIGHT 2021-03-11 13:25:00 88.451 kg HEIGHT 2021-03-11 13:25:00 180.3 cm WEIGHT 2021-03-11 13:25:00 88.451 kg HEIGHT 2021-03-11 13:25:00 180.3 cm Systolic blood 2021-04-09 09:50:00 114 mm[Hg] [facility] Diastolic blood 2021-04-09 09:50:00 66 mm[Hg] [facility] Heart rate 2021-04-09 09:50:00 64 /min [facility] Respiratory rate 2021-04-09 09:50:00 12 /min [facility] Oxygen saturation in 2021-04-09 09:50:00 95 /min [facility] Arterial blood by Medical Ce nter Pulse oximetry Body temperature 2021-04-09 09:21:00 36.78 Maria Teresa [facility] Body height 2021-04-03 14:19:00 180.3 cm [facility] Body weight 2021-04-03 14:19:00 88.451 kg [facility] BMI 2021-04-03 14:19:00 27.20 kg/m2 [facility] Procedures Procedure Date / Time Performed Performing Clinician [facility] REFERRAL- 2022-05-28 06:01:00 Doctor Unassigned, No [facility] [place] REQUEST/RESPONSE Name Medical Branch CT THORAX WO CONTRAST 2022-03-18 14:40:00 Kaur Lino [facility] REFERRAL- 2022-03-03 06:01:00 Doctor Unassigned, No [facility] [place] REQUEST/RESPONSE Name Medical Branch CBC WITH DIFF 2022-02-17 13:36[facility] FLU 2022-02-17 13:23:[facility]65[facility] Medical Br anch ,0.5 ML,IM,ADJUVANTED,QUAD (FLUAD) REFERRAL- 2022-02-13 06:01:00 Doctor Unassigned, No [facility] [place] REQUEST/RESPONSE Name Medical Branch PULMONARY FUNCTION 2022-01-15 14:38:27 Aidan York [facility] TEST (RESULTS) Medical Branch REFERRAL- 2021-11-25 05:01:00 Doctor Unassigned, No [facility] [place] REQUEST/RESPONSE Name Medical Branch EXTRACTION,CATARACT 2021-04-09 08:31:00 Pfprudencegfroni, [facility] W/IOL Rojelio Gillespie EXTRACTION,CATARACT 2021-03-12 08:17:00 Pflugfroni, [facility] W/IOL Rojelio Gillespie Plan of Care Planned Activity Planned Date Details Comments Source Future Scheduled 2028-04-06 DTAP/TDAP/TD VACCINES [facility] 00:00:00 (2 - Td or Tdap) [code Medic al Center = DTAP/TDAP/TD VACCINES (2 - Td or Tdap)] Future Scheduled 2028-04-06 DTAP/TDAP/TD VACCINES [facility] 00:00:00 (2 - Td or Tdap) [code Medic al Center = DTAP/TDAP/TD VACCINES (2 - Td or Tdap)] Future Scheduled 2028-04-06 DTAP/TDAP/TD VACCINES [facility] 00:00:00 (2 - Td or Tdap) [code Medic al Center = DTAP/TDAP/TD VACCINES (2 - Td or Tdap)] Future Scheduled 2028-04-06 DTAP/TDAP/TD VACCINES [facility] 00:00:00 (2 - Td or Tdap) [code Medic al Center = DTAP/TDAP/TD VACCINES (2 - Td or Tdap)] Future Scheduled 2022-12-[address] [facility] Test 00:00:00 (Season Ended) [code = Medic al Center INFLUENZA VACCINE (Season Ended)] Future Scheduled 2022-04-[address] [facility] Test 00:00:00 [facility] Cent[facility] r Screening (12+) [code = Tobacco Cessation Counseling and Screening (12+)] Future Scheduled 2022-04-[address] [facility] Test 00:00:00 [facility] Cent[facility] r Screening (12+) [code = Tobacco Cessation Counseling and Screening (12+)] Future Scheduled 2022-04-[address] [facility] Test 00:00:00 (12+) [code = Medical Center DEPRESSION SCREENING (12+)] Future Scheduled 2022-04-06 FALLS RISK SCREENING [facility] Test 00:00:00 [code = FALLS RISK Medical C enter SCREENING] Future Scheduled 2022-04-[address] [facility] Test 00:00:00 (12+) [code = Medical Center DEPRESSION SCREENING (12+)] Future Scheduled 2022-04-06 FALLS RISK SCREENING [facility] 00:00:00 [code = FALLS RISK Medical C enter SCREENING] Future Scheduled 2021-12-05 INFLUENZA VACCINE (#1) [facility] 00:00:00 [code = INFLUENZA Medical Ce nter VACCINE (#1)] Future Scheduled 2021-08-25 COVID-19 VACCINE (4 - [facility] 00:[facility]:00 Booster for Pfizer Medical C enter series) [code = COVID-19 VACCINE (4 - Booster for Pfizer series)] Future Scheduled 2021-08-25 COVID-19 VACCINE (4 - [facility] 00:00:00 Booster for Pfizer Medical C enter series) [code = COVID-19 VACCINE (4 - Booster for Pfizer series)] Future Scheduled 2021-05-20 COVID-19 VACCINE (4 - [facility] 00:00:00 Booster for Pfizer Medical C enter series) [code = COVID-19 VACCINE (4 - Booster for Pfizer series)] Future Scheduled 2021-04-22 COVID-19 VACCINE (4 - [facility] 00:00:00 Booster for Pfizer Medical C enter series) [code = COVID-19 VACCINE (4 - Booster for Pfizer series)] Future Scheduled 2021-04-[address] [facility] 00:00:00 (12+) [code = Medical Center DEPRESSION SCREENING (12+)] Future Scheduled 2021-04-06 FALLS RISK SCREENING [facility] 00:00:00 [code = FALLS RISK Medical C enter SCREENING] Future Scheduled 2021-04-[address] [facility] 00:00:00 (12+) [code = Medical Center DEPRESSION SCREENING (12+)] Future Scheduled 2021-04-06 FALLS RISK SCREENING [facility] 00:00:00 [code = FALLS RISK Medical C enter SCREENING] Future Scheduled 2021-02-14 PNEUMOCOCCAL 65+ YRS ([address] [facility] Test 00:00:00 - PCV) [code = [facility] PNEUMOCOCCAL 65+ YRS (2 - PCV)] Future Scheduled 2020-12-05 INFLUENZA VACCINE (#1) [facility] 00:00:00 [code = INFLUENZA Medical Ce nter VACCINE (#1)] Future Scheduled 2020-12-05 INFLUENZA VACCINE (#1) [facility] 00:00:00 [code = INFLUENZA Medical Ce nter VACCINE (#1)] Future Scheduled [address] [facility] Test 00:00:00 aneurysm screening Medical C enter (procedure) [code = 019234319] Future Scheduled [address] [facility] Test 00:00:00 aneurysm screening Medical C enter (procedure) [code = 827253623] Future Scheduled 2001 SHINGLES VACCINES ([address] [facility] Test 00:00:00 2) [code = SHINGLES [facility] VACCINES (1 of 2)] Future Scheduled 2001 SHINGLES VACCINES ([address] [facility] Test 00:00:00 2) [code = SHINGLES [facility] VACCINES (1 of 2)] Future Scheduled 2001 SHINGLES VACCINES ([address] [facility] 00:00:00 2) [code = SHINGLES Medical Center VACCINES (1 of 2)] Future Scheduled 1970 SHINGLES VACCINES ([address] [facility] 00:00:00 2) [code = SHINGLES [facility] VACCINES (1 of 2)] Future Scheduled 1969 HEPATITIS C SCREENING [facility] 00:00:00 [code = HEPATITIS C Medical Center SCREENING] Future Scheduled 1969 HEPATITIS C SCREENING [facility] 00:00:00 [code = HEPATITIS C Medical Center SCREENING] Future Scheduled 1969 HEPATITIS C SCRE[facility]ING [facility] 00:00:00 [code = HEPATITIS C Medical Center SCREENING] Future Scheduled 1969 HEPATITIS C SCREENING [facility] 00:00:00 [code = HEPATITIS C Medical Center SCREENING] Future Scheduled 1951 Screening for malignant [facility] Test 00:00:00 neoplasm of colon Medical Ce nter (procedure) [code = 549415312] Future Scheduled 1951 Screening for malignant [facility] Test 00:00:00 neoplasm of colon Medical Ce nter (procedure) [code = 455697535] Future Scheduled 1951 CT Colonography (combo) [facility] Test 00:00:00 [code = CT Colonography [facility] (combo)] Future Scheduled 1951 Screening for malignant [facility] Test 00:00:00 neoplasm of colon Medical Ce nter (procedure) [code = 645233238] Future Scheduled 1951 Screening for malignant [facility] Test 00:00:00 neoplasm of colon Medical Ce nter (procedure) [code = 328131385] Future Scheduled 1951 Screening for malignant [facility] Test 00:00:00 neoplasm of colon Medical Ce nter (procedure) [code = 405838079] Future Scheduled 1951 Screening for malignant [facility] Test 00:00:00 neoplasm of colon Medical Ce nter (procedure) [code = 815777288] Future Scheduled 1951 Sigmoidoscopy [code = [facility] ([facility]bo) [facility] 00:00:00 [code = CT Colonography [facility] (combo)] Future Scheduled 1951 Screening for malignant [facility] Test 00:00:00 neoplasm of colon Medical Ce nter (procedure) [code = 548316072] Future Scheduled 1951 Screening for malignant [facility] Test 00:00:00 neoplasm of colon Medical Ce nter (procedure) [code = 375593889] Future Scheduled 1951 Screening for malignant [facility] Test 00:00:00 neoplasm of colon Medical Ce nter (procedure) [code = 701679461] Future Scheduled 1951 Screening for malignant [facility] Test 00:00:00 neoplasm of colon Medical Ce nter (procedure) [code = 898658604] Future Scheduled 1951 Sigmoidoscopy [code = [facility] 00:[facility] Sigmoidoscopy] Medical Cente r Encounters Start End Encounter Admission Attending Care Care Encounter Source Date/Time Date/Time Type Type Clinicians Facility Department ID 2021-02-12 Outpatient [facility] [id number] 13:05:26 , DYLAN 2022-05-28 2022-05-28 [id number] [facility] 08:49:22 09:58:52 , DYLAN varelae of Medicin e 2022-05-28 2022-05-28 Orders Doctor BETH [id number] Univers 00:00:00 00:00:00 Only Unassigned, HAYDEN [id number] [facility] [id number] [facility] [phone] [address] 2022-04-09 2022-04-09 Outpatient R [facility] [id number] Univers 09:00:00 09:50:03 AIDAN elizabeth of [facility] 2022-04-09 2022-04-09 [facility] [id number] Univers 09:00:00 09:50:03 Visit Aidan DONAHUE [id number] ity of Vlad [place]BR[place] [id number] [facility] [id number] [facility] AND HOANG 0[address] Branch [facility] 2022-03-18 2022-03-18 Outpatient R [facility], [facility] [id number] Univers 08:19:15 23:59:00 AIDAN ity of [facility] 2022-03-18 2022-03-18 [facility] [id number] Univers 08:19:15 23:59:00 Encounter Aidan EPPERSON [id number] ity of [facility] [id number] [facility] [id number] [facility] [address] Branch 2022-03-03 2022-03-03 Orders Doctor BETH [id number] Univers 00:00:00 00:00:00 Only Unassigned, HAYDEN [id number] ity of [place] [facility] [id number] Maurice as [id number] [facility] 009 Branch 2022-02-19 2022-02-19 [facility] [id number] Univers 00:00:00 00:00:00 [facility] [id number] it [facility] [id number] Maurice as ESVIN?BLEA [id number] [place] akilmanuelito [facility] [address] MEDICAL OFFICE BUILDING 2022-02-17 2022-02-17 Hebrew Professor Lab, Ang - Db [facility] [id number] Univers 07:45:00 08:00:00 Visit Angel Bach [facility] [id number] ity [facility] [place] 4.2.7.2.686 Muarice as ESVIN?BLEA [phone] [place] akilmanuelito [facility] [address] MEDICAL OFFICE BUILDING 2022-02-17 2022-02-17 Outpatient R [facility] [id number] Univers 07:00:00 07:28:05 ANGEL elizabeth [facility] 2022-02-17 2022-02-17 Office [facility] [id number] Univers 07:00:00 07:28:05 Visit [facility] [id number] it y of [place] 4.2.7.2.686 Maurice as ESVIN?BLEA [id number] [place] gayatri [address] MEDICAL OFFICE BUILDING 2022-02-13 2022-02-13 Orders Doctor CAMPOS [id number] Univers 00:00:00 00:00:00 Only Unassigned, HAYDEN [id number] ity of [place] [facility] [id number] Maurice as [phone] [facility] 009 Branch 2022-01-15 2022-01-15 Hebrew Professor Therapist, Adc Respiratory [facility] [id number] Univers 09:30:00 11:00:00 Visit Dillon Robbins 350.1.13. 10 ity [place] [id number] [place] [phone] [facility] [address] 2022-01-15 2022-01-15 [facility] [id number] Univers 09:30:00 09:30:00 DILLON ity of [facility] 2022-01-15 2022-01-15 [facility] 1.2.840.114 [id number] Univers 00:00:00 00:00:00 Only Aidan DONAHUE 350.1.13.10 ity of Vlad [place].2.[place] [phone] [facility] [address] [facility] 2021-12-25 2021-12-25 Bhargavi [facility] 1.2.840.114 [id number] Univers 00:00:00 00:00:00 [facility] 350.1.13.10 it y of [place] 4.2.7.2.686 Maurice as ESVIN?BLEA [phone] [address] MEDICAL OFFICE [facility] 2021-12-13 2021-12-13 Hebrew Professor Romain, Adc Lab Main [facility] 1.2.8 40.114 [id number] Univers 13:15:00 13:30:00 Visit Aidan [place] 350.1. 13.10 ity of [place].2.686 [place] [facility] [phone] Ga dical [facility] 2021-12-13 2021-12-13 Outpatient [facility] [id number] Univers 13:15:00 13:15:00 AIDAN elizabeth [facility] 2021-12-11 2021-12-11 [facility] 1.2.840.114 [id number] Univers 09:30:00 10:16:38 Visit Aidan DONAHUE 350.1.13.10 ity of Vlad [place] 4.2.7.2.686 [facility] [phone] [facility] [address] [facility] 2021-12-11 2021-12-11 Outpatient Chinyere [facility] [id number] Univers 09:30:00 10:16:38 AIDAN elizabeth [facility] 2021-12-11 2021-12-11 Outpatient Chinyere [facility] [id number] Univers 09:30:00 09:30:00 AIDAN anand [facility] 2021-12-11 2021-12-11 Orders Doctor BETH 1.2.840.114 [id number] Univers 00:00:00 00:00:00 Only Unassigned, HAYDEN 350.1.13.10 ity of [place] [facility] 4.2.7.2.686 Maurice as [phone] [address] 2021-11-25 2021-11-[address] [facility] [id number] [facility] 10:11:08 12:14:09 , DYLAN morelos of Medicin e 2021-11-25 2021-11-25 Orders Doctor BETH 1.2.840.114 [id number] Univers 00:00:00 00:00:00 Only Unassigned, HAYDEN 350.1.13.10 ity of [place] [facility] 4.2.7.2.686 Maurice as [phone] [address] 2021-10-11 2021-10-11 Imm/Inj Vaccine, Ang Db [facility] 1.2.840 .114 [id number] Univers 17:00:00 17:10:00 Visit Kelsi Gomez [facility] 350.1.13.10 ity of [place] 4.2.7.2.686 Maurice as ESVIN?BLEA [phone] Ga gayatri MCKEON [address] MEDICAL OFFICE [facility] 2021-10-11 2021-10-11 Outpatient R [facility] [id number] Univers 17:00:00 17:00:00 KELSI elizabeth [facility] 2021-09-19 2021-09-19 Hebrew Professor Lab, Ang - Db [facility] 1.2.840.1 14 [id number] Univers 10:30:00 10:45:00 Visit Prosper [facility] 350.1.13.10 ity of [place] 4.2.7.2.686 Maurice as ESVIN?BLEA [phone] Ga gayatri MCKEON [address] [facility] OFFICE [facility] 2021-09-19 2021-09-19 Outpatient [facility] [id number] Univers 10:15:00 10:34:30 ANGEL anand [facility] 2021-09-19 2021-09-19 Office [facility] 1.2.840.114 [id number] Univers 10:15:00 10:30:00 Visit [facility] 350.1.13.10 it y of [place] 4.2.7.2.686 Maurice as ESVIN?BLEA [phone] Ga gayatri MCKEON 044 [facility] OFFICE [facility] 2021-09-19 2021-09-19 Outpatient [facility] [id number] Univers 10:15:00 10:15:00 ANGEL [facility] 2021-09-05 2021-09-05 Telephone [facility] 1.2.088.339 [id number] Univers 00:00:00 00:00:00 [facility] 350.1.13.10 it y of [place] 4.2.7.2.686 Maurice as ESVIN?BLEA [phone] Ga gayatri MCKEON [address] MEDICAL OFFICE [facility] 2021-09-01 2021-09-[address] [facility] 1.2.840.114 [id number] Univers 14:00:00 14:20:00 Care Lula Jarquin [facility] 350.1.13.10 ity of [place] 4.2.7.2.686 Maurice as ESVIN?BLEA [phone] [address] MEDICAL OFFICE [facility] 2021-09-01 2021-09-01 Outpatient R YONNY [facility] [id number] Univers 14:00:00 14:00:00 RANIA ity of [facility] 2021-08-28 2021-08-[address] [facility] 1.2.840.114 [id number] Univers 20:00:00 20:00:00 Care [facility] 350.1.13.10 it y of [place] 4.2.7.2.686 Maurice as ESVIN?BLEA [phone] [address] OFFICE [facility] 2021-08-28 2021-08-28 Outpatient R YAKOV [facility] [id number] Univers 20:00:00 18:53:00 WEN ity [facility] 2021-05-27 2021-05-27 Orders Doctor BETH Cesar2.840.114 [id number] Univers 00:00:00 00:00:00 Only Unassigned, HAYDEN 350.1.13.10 ity of [place] [facility] 4.2.7.2.686 Maurice as [phone] [address] 2021-05-10 2021-05-[address] [facility] [id number] [facility] 09:24:11 10:22:54 , DYLAN morelos of Medicin e 2021-05-10 2021-05-10 Orders Doctor BETH Cesar2.840.114 [id number] Univers 00:00:00 00:00:00 Only Unassigned, HAYDEN 350.1.13.10 ity of [place] [facility] 4.2.7.2.686 Maurice as [phone] [address] 2021-05-01 2021-05-01 Orders Doctor BETH Cesar2.840.114 [id number] Univers 00:00:00 00:00:00 Only Unassigned, HAYDEN 350.1.13.10 ity of [place] [facility] 4.2.7.2.686 Maurice as [phone] [address] 2021-04-10 2021-04-[address] [facility] [id number] [facility] 11:36:47 12:15:29 , DYLAN varelae of Medicin e 2021-04-09 2021-04-09 [facility] [id number] [facility] 07:15:00 10:06:00 , ANNONA 2021-04-09 2021-04-09 [facility] [id number] 07:15:00 10:06:00 Encounter , [facility] 2021-04-09 2021-04-09 Anesthesia Angelia Burgess [facility] [id number] 08:41:00 09:19:00 Event Andrea [facility] 2021-04-09 2021-04-09 Surgery [facility] [id number] 08:30:00 09:10:00 , [facility] 2021-04-09 2021-04-09 Travel [facility] [id number] [facility] 00:00:00 00:00:00 [facility] 2021-04-04 2021-04-04 Laboratory Only, Adc Test [facility] 1.2.840. 114 [id number] Univers 08:00:00 08:15:00 Only Benjamin Clark 350.1.13.10 clara [facility] 4.2.7.2.686 [facility] [phone] [address] 2021-04-04 2021-04-04 Outpatient Chinyere [facility] [id number] Univers 08:00:00 08:00:00 BENJAMIN elizabeth [facility] 2021-04-03 2021-04-03 Outpatient EL SLE SLE [id number] 14:25:59 14:25:59 2021-03-25 2021-03-[address] [facility] [id number] [facility] 08:24:37 10:02:20 , DYLAN varelae of Medicin e 2021-03-25 2021-03-25 [facility] [id number] [facility] St 09:02:00 09:02:00 Encounter , Dylan [facility] 2021-03-25 2021-03-25 Outpatient SLE SLE [id number] [facility] 00:00:00 00:00:00 2021-03-25 2021-03-25 Outpatient SLEH SLE [id number] [facility] 00:00:00 00:00:00 2021-03-25 2021-03-25 Outpatient SLE SLE [id number] [facility] 00:00:00 00:00:00 2021-03-23 2021-03-23 Laboratory Only, Adc Test [facility] 1.2.840. 114 [id number] Univers 09:00:00 09:15:00 Only Mercedez Haddad 350.1.13.10 ity [facility] 4.2.7.2.686 [facility] [phone] [address] 2021-03-23 2021-03-23 Outpatient R ADA [facility] [id number] Univers 09:00:00 09:00:00 MERCEDEZ elizabeth [facility] 2021-03-23 2021-03-23 Orders Doctor CAMPOS 1.2.840.114 [id number] Univers 00:00:00 00:00:00 Only Unassigned, HAYDEN 350.1.13.10 ity of [place] [facility] 4.2.7.2.686 [facility] [phone] [place] [address] [address] 2021-03-13 2021-03-13 Outpatient [facility] [id number] [facility] 08:16:04 10:09:22 , DYLAN varelae of Medicin e 2021-03-12 2021-03-[address] [facility] [id number] [facility] 06:48:00 23:59:00 Dionisiog e of Medicin e 2021-03-12 2021-03-12 [facility] [id number] [facility] 06:48:00 09:55:00 Encounter , Dylan [facility] 2021-03-12 2021-03-12 Outpatient [facility] Surgery [id number] [facility] 06:48:00 09:55:00 , DYLAN 2021-03-12 2021-03-12 Anesthesia Harpal [facility] [id number] 08:27:00 09:01:00 Event Carlyn [facility] 2021-03-12 2021-03-12 Surgery Pflupe [facility] [id number] 08:00:00 08:30:00 , Dylan [facility] 2021-03-12 2021-03-12 Travel [facility] [id number] [facility] 00:00:00 00:00:00 [facility] 2021-03-11 2021-03-11 Outpatient EL SLE SLE [id number] SLE 13:31:19 23:59:00 2021-03-11 2021-03-11 [facility] [id number] 11:50:00 23:59:00 Encounter [facility] 2021-03-09 2021-03-09 Outpatient Chinyere BACH [facility] [id number] Univers 08:00:00 08:00:00 ANGEL elizabeth [facility] 2021-03-08 2021-03-[address] [facility] [id number] [facility] 08:09:52 10:13:50 , DYLAN morelos of Medicin e 2021-03-08 2021-03-08 Orders Doctor BETH 1.2.840.114 [id number] Univers 00:00:00 00:00:00 Only Unassigned, HAYDEN 350.1.13.10 ity of [place] [facility] 4.2.7.2.686 Maurice as [phone] [address] 2021-02-25 2021-02-25 Outpatient Chinyere [facility] [id number] Univers 08:00:00 08:00:00 YUNIOR elizabeth [facility] 2021-02-25 2021-02-25 Imm/Inj Nurse, Adc Pob Immunization [facility] 1.2.840.114 [id number] Univers 07:59:31 07:59:41 Visit Yunior Dean 350.1.13 .10 ity of [place] 4.2.7.2.686 [place] [phone] Ga dicmanuelito SOTOMAYOR [facility] 2021-02-21 2021-02-21 Telephone [facility] 1.2.046.567 [id number] Univers 00:00:00 00:00:00 [facility] 350.1.13.10 it y of [place] 4.2.7.2.686 Maurice as ESVIN?BLEA [phone] Ga gayatri MCKEON 044 [facility] OFFICE [facility] 2021-02-18 2021-02-18 Outpatient Chinyere BACH [facility] [id number] Univers 08:15:00 08:15:00 [facility] 2021-02-18 2021-02-18 Outpatient Chinyere BACH [facility] [id number] Univers 08:15:00 08:15:00 [facility] 2021-02-18 2021-02-18 Hebrew Professor Lab, [facility] 1.2.840.1 14 [id number] Univers 07:51:53 08:05:01 Visit Angel Bach [facility] 350.1.13.10 ity of [place] 4.2.7.2.686 Maurice as ESVIN?BLEA [phone] Ga gayatri MCKEON 353 [facility] OFFICE [facility] 2021-02-15 2021-02-15 Office [facility] 1.2.840.114 [id number] Univers 08:19:24 08:49:24 Visit [facility] 350.1.13.10 it y of [place] 4.2.7.2.686 Maurice as ESVIN?BLEA [phone] Ga gayatri MCKEON 044 [facility] OFFICE [facility] 2021-02-15 2021-02-15 Outpatient Chinyere CERVANTES [facility] [id number] Univers 08:30:00 08:46:03 VLAD elizabeth [facility] 2021-02-15 2021-02-15 Outpatient [facility] [id number] Univers 08:30:00 08:30:00 VLAD molinaanand [facility] 2021-02-12 2021-02-[address] [facility] 1.2.976.383 [id number] Univers 00:00:00 00:00:00 Angel [facility] 350.1.13.10 it y of [place] 4.2.7.2.686 Maurice as ESVIN?BLEA [phone] Ga dichi KNEY [address] [place] [address] MEDICAL OFFICE BUILDING 2021-02-11 2021-02-[address] [facility] [id number] [facility] 14:16:58 17:11:23 , DYLAN morelos of Medicin e 2021-02-11 2021-02-11 Orders Doctor BETH 1.2.840.114 [id number] Univers 00:00:00 00:00:00 Only Unassigned, HAYDEN 350.1.13.10 ity of [place] [facility] 4.2.7.2.686 Maurice as [phone] [address] 2020-11-30 2020-11-30 Orders Doctor BETH 1.2.840.114 [id number] Univers 00:00:00 00:00:00 Only Unassigned, HAYDEN 350.1.13.10 ity of [place] [facility] 4.2.7.2.686 Maurice as [phone] [address] 2020-11-27 2020-11-27 Refill [facility] 1.2.840.114 [id number] Univers 00:00:00 00:00:00 [facility] 350.1.13.10 it y of [place] 4.2.7.2.686 Maurice as Professio [phone] [address] Office Building One 2020-11-22 2020-11-22 Outpatient R PROSPER [facility] [id number] Univers 08:15:00 08:15:00 ANGEL ity [facility] 2020-11-20 2020-11-20 Telephone [facility] 1.2.631.319 [id number] Univers 00:00:00 00:00:00 [facility] 350.1.13.10 it y of [place] 4.2.7.2.686 Maurice as Professio [phone] Ga dichi nal [address] Office [facility] One 2020-11-16 2020-11-16 Telephone [facility] 1.2.805.881 [id number] Univers 00:00:00 00:00:00 [facility] 350.1.13.10 it y of [place] 4.2.7.2.686 Maurice as Professio [phone] [facility] nal [address] Office [facility] One 2020-11-01 2020-11-01 Orders Doctor BETH 1.2.840.114 [id number] Univers 00:00:00 00:00:00 Only Unassigned, HAYDEN 350.1.13.10 ity of [place] [facility] 4.2.7.2.686 Maurice as [phone] [address] 2020-08-20 2020-08-20 Orders Doctor BETH 1.2.840.114 [id number] Univers 00:00:00 00:00:00 Only Unassigned, HAYDEN 350.1.13.10 ity of [place] [facility] 4.2.7.2.686 Maurice as [phone] [address] 2020-07-05 2020-07-05 Outpatient Chinyere MCKEON [facility] [id number] Univers 16:00:00 16:00:00 GER [facility] 2020-06-14 2020-06-14 Outpatient EARL [facility] [id number] Univers 12:20:00 12:20:00 YUNIOR [facility] 2020-06-11 2020-06-11 Patient [facility] 1.2.840.114 [id number] Univers 00:00:00 00:00:00 [facility]reach [facility] 350.1.13.10 i ty of [facility] [place].2.7.2.686 [place] ALEJANDRO [phone] [facility] [address] 2020-05-02 2020-05-02 Telephone [facility] 1.2.066.404 [id number] Univers 00:00:00 00:00:00 [facility] 350.1.13.10 it y of [place] 4.2.7.2.686 Maurice as Professio [phone] Ga dical [address] Office Building One 2020-05-02 2020-05-02 Telephone Prosper KSLISET 1.2.877.837 [id number] 00:00:00 00:00:00 [facility] 350.1.13.10 [place] 4.2.7.2.686 Professio [phone] [place] [address] Office Building One 2020-04-30 2020-04-30 Orders Doctor BETH 1.2.840.114 [id number] [facility] 00:00:00 00:00:00 Only Unassigned, HAYDEN 350.1.13.10 ity of [place] [facility] 4.2.7.2.686 Maurice as [phone] [address] 2020-04-30 2020-04-30 Orders Doctor BETH 1.2.840.114 [id number] 00:00:00 00:00:00 Only Unassigned, HAYDEN 350.1.13.10 [place] [facility] 4.2.7.2.686 [id number] 009 2020-03-06 2020-03-06 Orders Doctor BETH 1.2.840.114 [id number] Univers 00:00:00 00:00:00 Only Unassigned, HAYDEN 350.1.13.10 ity of [place] [facility] 4.2.7.2.686 Maurice as [phone] [address] 2020-03-06 2020-03-06 Orders Doctor BETH 1.2.840.114 [id number] 00:00:00 00:00:00 Only Unassigned, HAYDEN 350.1.13.10 [place] [facility] 4.2.7.2.686 [phone] 009 2020-02-17 2020-02-17 Telephone Prosper [place] 1.2.454.401 [id number] 00:00:00 00:00:00 [facility] 350.1.13.10 [place] 4.2.7.2.686 Professio [phone] nal [facility] Office Building One 2020-02-17 2020-02-[address] [facility] 1.2.309.364 [id number] [facility] 00:00:00 00:00:00 [facility] 350.1.13.10 it y of [place] 4.2.7.2.686 Maurice as Professio [phone] [address] Office [facility] 2020-02-15 2020-02-15 Hebrew Professor Lab, Adc Fam Pob I [facility] 1.2. 840.114 [id number] Univers 13:11:32 13:31:32 Visit Angel Bach 350.1.13.10 ity of [place] 4.2.7.2.686 Maurice as Professio [phone] [address] Office Building [facility] 2020-02-15 2020-02-15 Office [facility] 1.2.840.114 [id number] 11:43:36 12:53:57 Visit Angel [facility] 350.1.13.10 [place] 4.2.7.2.686 Professio [phone] [place] [address] Office [facility] 2020-02-15 2020-02-15 Office [facility] 1.2.840.114 [id number] Univers 11:43:36 12:53:57 Visit [facility] 350.1.13.10 it y of [place] 4.2.7.2.686 Maurice as Professio [phone] [address] Office [facility] 2020-02-15 2020-02-15 [facility] [id number] Univers 12:15:00 12:15:00 ANGEL elizabeth [facility] 2020-02-10 2020-02-10 Orders Doctor CAMPOS 1.2.840.114 [id number] 00:00:00 00:00:00 Only Unassigned, HAYDEN 350.1.13.10 [place] [facility] 4.2.7.2.686 [id number] 009 2020-02-10 2020-02-10 Orders Doctor CAMPOS 1.2.840.114 [id number] Univers 00:00:00 00:00:00 Only Unassigned, HAYDEN 350.1.13.10 ity of [place] [facility] 4.2.7.2.686 Maurice as [phone] [address] 2020-02-03 2020-02-03 Orders Doctor CAMPOS 1.2.840.114 [id number] 00:00:00 00:00:00 Only Unassigned, HAYDEN 350.1.13.10 [place] [facility] 4.2.7.2.686 [id number] 009 2020-02-03 2020-02-03 Orders Doctor BETH 1.2.840.114 [id number] Univers 00:00:00 00:00:00 Only Unassigned, HAYDEN 350.1.13.10 ity of [place] [facility] 4.2.7.2.686 Maurice as [phone] [address] 2019-11-11 2019-11-11 Refmarshal [facility] 1.2.840.114 [id number] Univers 00:00:00 00:00:00 Angel Epperson 350.1.13.10 i ty of [place].7.2.[place] Profess[place] [phone] [address] Building 2019-10-27 2019-10-27 Orders Doctor CAMPOS 1.2.840.114 [id number] Univers 00:00:00 00:00:00 Only Unassigned, HAYDEN 350.1.13.10 ity of [place] [facility] 4.2.7.2.686 Maurice as [phone] [address] 2019-10-22 2019-10-22 Telephone Roberta Bauman 1.2.840.114 [id number] Univers 00:00:00 00:00:00 Andrea BLAKE 350.1.13.10 it y of HOSPITAL 4.2.7.2.686 Maurice as [phone] [address] 2019-10-19 2019-10-19 Urgent Pob1, Acute Care Clinic [facility] 1. 2.840.114 [id number] Univers 13:07:06 13:27:06 Angel Stone 350.1.13.10 ity of [place] 4.2.7.2.686 Maurice as Professio [phone] [address] Office Building One 2019-10-19 2019-10-19 Outpatient R PROSPER [facility] [id number] Univers 08:15:00 08:15:00 ANGEL elizabeth of [facility] 2019-10-19 2019-10-[address] 1.2.840.114 [id number] Univers 07:50:49 08:05:49 ne Visit Angel Epperson 350.1.13.10 ity julissa Roche 4.2.7.2.686 [place] Professio [phone] Ga dical nal [address] 2019-10-13 2019-10-13 Telephone Prosper KSL[place] 1.2.988.709 [id number] Univers 00:00:00 00:00:00 Angel [facility] 350.1.13.10 it y of [place] 4.2.7.2.686 Maurice as Professio [phone] Ga dical nal [address] Building One Results Test Description Test Time Test Comments Results Result Comments Source CBC WITH DIFF 2022-02-17 19:54:41 Test Item Value Reference Range Interpretation Comme nts WBC (test code = 6690-2) See_Comment [A utomated message] The system which ge nerated this result transmit jun reference range: 4.20 - 1 0.70 10*3/?L. The reference r mitch was not used to interpr et this result as normal/abnor mal. RBC (test code = 789-8) See_Comment L [Au tomated message] The system which [employer] nerated this result transmit jun reference range: 4.26 - 5 .52 10*6/?L. The reference r mitch was not used to interpr et this result as normal/abnor mal. HGB (test code = 718-7) 13.5 g/dL 12.2-16.4 HCT (test code = 4544-3) 38.6 % 38.4-49.3 MCV (test code = 787-2) 96.0 fL 81.7-95.6 H MCH (test code = 785-6) 33.6 pg 26.1-32.7 H MCHC (test code = 786-4) 35.0 g/dL 31.2-35.0 RDW-SD (test code = 00713-1) 41.5 fL 38.5-51.6 RDW-CV (test code = 788-0) 11.9 % 12.1-15.4 L PLT (test code = 777-3) See_Comment [Au tomated message] The system which ge nerated this result transmit jun reference range: 150 - 32 8 10*3/?L. The reference range was not used to interpret th is result as normal/abnormal . MPV (test code = 45842-8) 10.8 fL 9.8-13.0 NRBC/100 WBC (test code = See_Comment [ Automated message] The [id number]) system which ge nerated this result transmit jun reference range: 0.0 - 10 .0 /100 WBCs. The reference r mitch was not used to interpr et this result as normal/abnor mal. NRBC x10^3 (test code = See_Comment [Au tomated message] The [id number]) system which ge nerated this result transmit jun reference range: 10*3/?L. The reference range was not u sed to interpret this result as normal/abnormal . GRAN MAT (NEUT) % (test code 54.5 % = 770-8) IMM GRAN % (test code = 0.50 % [id number]) LYMPH % (test code = 736-9) 23.1 % MONO % (test code = 5905-5) 19.8 % EOS % (test code = 713-8) 1.4 % BASO % (test code = 706-2) 0.7 % GRAN MAT x10^3(ANC) (test 2.34 10*3/uL 1.99-6.95 code = [id number]) IMM GRAN x10^3 (test code = 0.00-0.06 [id number]) LYMPH x10^3 (test code = 0.99 10*3/uL 1.09-3.23 L 731-0) MONO x10^3 (test code = 0.85 10*3/uL 0.36-1.02 742-7) EOS x10^3 (test code = 0.06 10*3/uL 0.06-0.53 711-2) BASO x10^3 (test code = 0.03 10*3/uL 0.01-0.09 704-7) Lab Interpretation (test Abnormal code = 23109-6) [facility] WITH [id number] 19:54:41 Test Item Value Reference Range Interpretation Comments WBC (test code = See_Comment [Automated 6690-2) message] The sy stem which generated this result transmitted reference range : 4.20 - 10.70 10*3/?L. The reference range was not used to interpret this result as normal/abnormal . RBC (test code = See_Comment L [Automated 789-8) message] The sy stem which generated this result transmitted reference range : 4.26 - 5.52 10*6/?L. The reference range was not used to interpret this result as normal/abnormal . HGB (test code = 13.5 g/dL 12.2-16.4 718-7) HCT (test code = 38.6 % 38.4-49.3 4544-3) MCV (test code = 96.0 fL 81.7-95.6 H 787-2) MCH (test code = 33.6 pg 26.1-32.7 H 785-6) MCHC (test code = 35.0 g/dL 31.2-35.0 786-4) RDW-SD (test code = 41.5 fL 38.5-51.6 04381-4) RDW-CV (test code = 11.9 % 12.1-15.4 L 788-0) PLT (test code = See_Comment [Automated 777-3) message] The sy stem which generated this result transmitted reference range : 150 - 328 10*3/ ?L. The reference r mitch was not used to interpret this result as normal/abnormal . MPV (test code = 10.8 fL 9.8-13.0 38876-4) NRBC/100 WBC (test See_Comment [Automat ed code = [id number]) message] The system which generated this result transmitted reference range : 0.0 - 10.0 /100 WBCs. The refer ence range was not u sed to interpret th is result as normal/abnormal . NRBC x10^3 (test code See_Comment [Auto mated = [id number]) message] The s ystem which generated this result transmitted reference range : 10*3/?L. The reference range was not used to interpret this result as normal/abnormal . GRAN MAT (NEUT) % 54.5 % (test code = 770-8) IMM GRAN % (test code 0.50 % = 5137911392) LYMPH % (test code = 23.1 % 736-9) MONO % (test code = 19.8 % 5905-5) EOS % (test code = 1.4 % 713-8) BASO % (test code = 0.7 % 706-2) GRAN MAT x10^3(ANC) 2.34 10*3/uL 1.99-6.95 (test code = 8001984915) IMM GRAN x10^3 (test 0.00-0.06 code = 8488626721) LYMPH x10^3 (test code 0.99 10*3/uL 1.09-3.23 L = 731-0) MONO x10^3 (test code 0.85 10*3/uL 0.36-1.02 = 742-7) EOS x10^3 (test code = 0.06 10*3/uL 0.06-0.53 711-2) BASO x10^3 (test code 0.03 10*3/uL 0.01-0.09 = 704-7) Lab Interpretation Abnormal (test code = 25858-2) [facility]2022-01-15 14:38:27 Test Item Value Reference Range Interpretation Comments FVC Actual (test code = 3994) 4.66 L FEV1 Actual (test code = 3993) 3.67 L FEV1/FVC Actual (test code = 3995) 79 % [facility]
[2022-09-15 09:17] LABS: Absolute Lymphocytes (CBC) 1.1 K/uL (0.7-4.9); Hematocrit 39.7 % (39.6-49.0); Lymphocytes % 22.9 % (15.3-44.8); MCV 97.3 fL (80-100); MPV 9.1 fL (7.6-11.3); RBC Red Blood Cell Count 4.08 M/uL (4.33-5.43)
[2022-09-15] MEDS ORDERED: LORazepam 2 MG/ML VIAL ONE (09:19)
[2022-09-15 09:21] LABS: Protime INR 1.05
--- NOTE | 2022-09-15 09:28 | RAD REPORT ---
EXAM DESCRIPTION: CT - Head Brain Wo Cont - 09/15/2022 9:20 am CLINICAL HISTORY: near syncope Headache, drowsiness COMPARISON: No comparisons TECHNIQUE: All CT scans are performed using dose optimization technique as appropriate and may inclu de automated exposure control or mA/KV adjustment according to patient size. FINDINGS: No intracranial hemorrhage, hydrocephalus or extra-axial fluid collection.No areas of brai n edema or evidence of midline shift. The paranasal sinuses and mastoids are clear. The calvarium is intact. IMPRESSION: No acute intracranial abnormality.
[2022-09-15 09:35] LABS: Potassium 3.9 mEq/L (3.5-5.1); Troponin High Sensitivity 6.3 pg/mL (<58.9)
--- NOTE | 2022-09-15 09:44 | RAD REPORT ---
EXAM DESCRIPTION: RAD - Chest Single View - 09/15/2022 9:36 am CLINICAL HISTORY: sob, near syncope Chest pain. COMPARISON: Chest Single View dated 10/07/2019 FINDINGS: Portable technique limits examination quality. The lungs are grossly clear. The heart is normal in size. No displaced fractures. IMPRESSION: No acute intrathoracic process suspected.
[2022-09-15] MEDS ORDERED: Ringers Lactate 1,000 ML IV ONE (10:02)
--- NOTE | 2022-09-15 12:41 | EDPHYS ---
Physician Documentation [facility] Name: Júnior Rodrigues Age: 72 yrs Sex: Male : 1950 Arrival Date: 09/15/2022 Time: 08:48 Bed 13 Private MD: Angel Cheng S ED Physician Diego Coe HPI: 09/15 08:53 This 72 yrs old Male presents to ER via Ambulatory with complaints of Shortness Of jmm Breath. 08:53 The patient has shortness of breath at rest. Onset: The symptoms/episode began/occurred jmm gradually, 1 day(s) ago. Duration: The symptoms are continuous. The patient's shortness of breath is aggravated by nothing, is alleviated by nothing. This is a 72 year old male with a history of sbo, htn, that presents to the ED with complaints of shortness of breath and near syncope beginning approx 3 days ago. Patient states performing strenuous activity yesterday. States he nearly collapsed . Denies chest chest pain. Historical: - Allergies: 09:08 No Known Allergies; jl7 - Home Meds: 09:08 atorvastatin Oral [Active]; carvedilol Oral [Active]; clopidogrel Oral [Active]; jl7 losartan Oral [Active]; - PMHx: 09:08 Hyperlipidemia; SMALL BOWEL OBSTRUCTION; Hypertensive disorder; jl7 - PSHx: 09:08 Cardic stent to LAD; jl7 - Immunization history:: Adult Immunizations unknown. - Social history:: Smoking status: Patient denies any tobacco usage or history of. ROS: 08:53 Constitutional: Negative for fever, chills, and weight loss, Cardiovascular: Negative jmm for chest pain, palpitations, and edema. 08:53 Respiratory: Positive for shortness of breath. jmm 08:53 All other systems are negative. Exam: 08:53 Head/Face: atraumatic. Eyes: EOMI, no conjunctival erythema appreciated ENT: Moist jmm Mucus Membranes Neck: Trachea midline, Supple Chest/axilla: Normal chest wall appearance and motion. Cardiovascular: Regular rate and rhythm. No edema appreciated Respiratory: Normal respirations, no respiratory distress appreciated Abdomen/GI: Non distended Back: Normal ROM Skin: General appearance color normal 08:53 Constitutional: The patient appears alert, awake, anxious. 08:53 Musculoskeletal/extremity: 08:53 Musculoskeletal/extremity: No swelling appreciated, compartments are soft. 08:53 Skin: Appearance: Color: normal in color. 08:53 Neuro: Orientation: is normal, Mentation: is normal, Memory: is normal. 08:53 Psych: Behavior/mood is pleasant, cooperative. Vital Signs: 09:00 BP 121 / 68; Pulse 92; Resp 16; Pulse Ox 100% on R/A; db 09:07 BP 121 / 68; Pulse 95; Resp 24 S; Temp 97.9; Pulse Ox 100% on R/A; Weight 86.18 kg; jl7 Height 5 ft. 11 in. ; Pain 0/10; 10:00 BP 131 / 84; Pulse 78; Resp 16; Pulse Ox 96% on R/A; db 11:00 BP 107 / 60; Pulse 62; Resp 16; Pulse Ox 98% on R/A; db 12:02 BP 117 / 71; Pulse 65; Resp 18; Pulse Ox 97% on R/A; mb9 12:30 BP 115 / 73; Pulse 57; Resp 18; Pulse Ox 98% on R/A; db 13:30 BP 124 / 81; Pulse 66; Resp 16; Pulse Ox 96% on R/A; db 09:07 Body Mass Index 26.50 (86.18 kg, 180.34 cm) [facility] 09:07 Pain Scale: Adult jl7 MDM: 08:53 Patient medically screened. [facility] 08:53 Differential diagnosis: Anemia Anxiety Reaction Myocardial Infarction pneumonia, [facility] Pneumothorax Pulmonary Embolism. Data reviewed: vital signs. 11:45 Counseling: I had a detailed discussion with the patient and/or guardian regarding: the [facility] historical points, exam findings, and any diagnostic results supporting the discharge/admit diagnosis, lab results, radiology results, the need for outpatient follow up, to return to the emergency department if symptoms worsen or persist or if there are any questions or concerns that arise at home. 11:45 Refusal of service: The patient/guardian displays adequate decision making capability [facility] and despite a detailed discussion of alternatives, benefits, risks, and consequences refuses: Admission to the hospital for further work-up and treatment. 09/15 08:58 Order name: Basic Metabolic Panel; Complete Time: 09:35 [facility] 09/15 08:58 Order name: CBC with Diff; Complete Time: 09:20 [facility] 09/15 08:58 Order name: NT PRO-BNP; Complete Time: 09:35 [facility] 09/15 08:58 Order name: PT-INR; Complete Time: 09:23 [facility] 09/15 08:58 Order name: Troponin HS; Complete Time: 09:35 [facility] 09/15 09:36 Order name: CPK; Complete Time: 11:45 [facility] 09/15 08:58 Order name: XRAY Chest (1 view); Complete Time: 09:45 [facility] 09/15 08:58 Order name: CT Head Brain wo Cont; Complete Time: 09:29 [facility] 09/15 08:58 Order name: EKG; Complete Time: 08:59 [facility] 09/15 08:58 Order name: Cardiac monitoring; Complete Time: 09:13 [facility] 09/15 08:58 Order name: EKG - Nurse/Tech; Complete Time: 09:14 [facility] 09/15 08:58 Order name: IV Saline Lock; Complete Time: 09:14 [facility] 09/15 08:58 Order name: Labs collected and sent; Complete Time: 09:14 [facility] 09/15 08:58 Order name: O2 Per Protocol; Complete Time: 09:13 [facility] 09/15 08:58 Order name: O2 Sat Monitoring; Complete Time: 09:13 [facility] Administered Medications: 09:14 Drug: Ativan IVP 0.5 mg Route: IVP; Site: right antecubital; db 13:38 Follow up: Response: No adverse reaction db 09:55 Drug: Lactated Ringers Solution IV 1000 ml Route: IV; Rate: 250 ml/hr; Site: right db antecubital; 13:38 Follow up: Response: No adverse reaction; IV Status: Completed infusion; IV Intake: db 775ml Disposition: 12:59 Co-signature as Attending Physician, Diego SAMSON was immediately available on-site ms3 in the Emergency Department for consultation in the care of the patient. Disposition Summary: 09/15/22 12:40 Discharge Ordered Location: Home [facility] Condition: Stable jm Diagnosis - Dyspnea, unspecified jmm - Dehydration jmm Followup: jmm - With: Private Physician - When: 2 - 3 days - Reason: Recheck today's complaints, Continuance of care, Re-evaluation by your physician Discharge Instructions: - Discharge Summary Sheet jmm - Dehydration, Elderly jmm - Shortness of Breath, Adult jmm Forms: - Medication Reconciliation Form jmm - Thank You Letter jmm - Antibiotic Education jmm - Prescription Opioid Use jmm Signatures: Dispatcher [employer] Sanjay Schreiber PA PA jmm Leal, Jahala, RN RN jl7 Diego Coe, DO ms3 Hazel Tejeda, RN RN db
--- NOTE | 2022-09-15 12:41 | ER ---
Nurse's Notes [facility] Name: Júnior Rodrigues Age: 72 yrs Sex: Male : 1950 Arrival Date: 09/15/2022 Time: 08:48 Bed 13 Private MD: Angel Cheng S Diagnosis: Dyspnea, unspecified;Dehydration Presentation: 09/15 08:52 Chief complaint: Patient states: Shortness of breath on the way to work, denies pain, jl7 pt tachypneic in triage, 100% on room air, reports hx of stent placed to LAD. Coronavirus screen: At this time, the client does not indicate any symptoms associated with coronavirus-19. Ebola Screen: No symptoms or risks identified at this time. 08:52 Method Of Arrival: Ambulatory 7 09:07 Initial Sepsis Screen: Does the patient meet any 2 criteria? RR > 20 per min. No. jl7 Patient's initial sepsis screen is negative. Does the patient have a suspected source of infection? No. Patient's initial sepsis screen is negative. Risk Assessment: Do you want to hurt yourself or someone else? Patient reports no desire to harm self or others. Onset of symptoms was September 15, 2022. 09:07 Acuity: SHEKHAR 2 jl7 Triage Assessment: 09:08 General: Appears in no apparent distress. uncomfortable, Behavior is cooperative, jl7 anxious, restless. Pain: Denies pain. Respiratory: Reports shortness of breath at rest Airway is patent Respiratory effort is even, unlabored, Respiratory pattern is symmetrical, tachypnea Onset: The symptoms/episode began/occurred suddenly, the patient has moderate shortness of breath. Derm: Skin is pink, warm \T\ dry. Historical: - Allergies: 09:08 No Known Allergies; jl7 - Home Meds: 09:08 atorvastatin Oral [Active]; carvedilol Oral [Active]; clopidogrel Oral [Active]; jl7 losartan Oral [Active]; - PMHx: 09:08 Hyperlipidemia; SMALL BOWEL OBSTRUCTION; Hypertensive disorder; jl7 - PSHx: 09:08 Cardic stent to LAD; jl7 - Immunization history:: Adult Immunizations unknown. - Social history:: Smoking status: Patient denies any tobacco usage or history of. Screenin:15 [facility] ED Fall Risk Assessment (Adult) History of falling in the last 3 months, db including since admission No falls in past 3 months (0 pts) Confusion or Disorientation No (0 pts) Intoxicated or Sedated No (0 pts) Impaired Gait No (0 pts) Mobility Assist Device Used No (0 pt) Altered Elimination No (0 pt) Score/Fall Risk Level 0 - 2 = Low Risk Oriented to surroundings, Maintained a safe environment. Abuse screen: Denies threats or abuse. Denies injuries from another. Nutritional screening: No deficits noted. Tuberculosis screening: No symptoms or risk factors identified. Assessment: 09:15 Reassessment: Patient and/or family updated on plan of care and expected duration. Pain db level reassessed. Patient is alert, oriented x 3, equal unlabored respirations, skin warm/dry/pink. General: Appears distressed, uncomfortable, Behavior is cooperative, anxious. Neuro: Level of Consciousness is awake, alert, obeys commands, Oriented to person, place, time, situation. Cardiovascular: Rhythm is regular. Respiratory: Airway is patent Respiratory effort is even, unlabored, Respiratory pattern is regular, symmetrical, Breath sounds are clear. 10:00 Reassessment: Patient appears in no apparent distress at this time. Patient and/or db family updated on plan of care and expected duration. Pain level reassessed. Patient is alert, oriented x 3, equal unlabored respirations, skin warm/dry/pink. 11:00 Reassessment: Patient appears in no apparent distress at this time. Patient and/or db family updated on plan of care and expected duration. Pain level reassessed. Patient is alert, oriented x 3, equal unlabored respirations, skin warm/dry/pink. 12:00 Reassessment: Patient appears in no apparent distress at this time. Patient and/or db family updated on plan of care and expected duration. Pain level reassessed. Patient is alert, oriented x 3, equal unlabored respirations, skin warm/dry/pink. General: Appears in no apparent distress. uncomfortable, Behavior is calm, cooperative. 13:39 Reassessment: Patient appears in no apparent distress at this time. Patient and/or db family updated on plan of care and expected duration. Pain level reassessed. Patient is alert, oriented x 3, equal unlabored respirations, skin warm/dry/pink. Patient states feeling better. Patient states symptoms have improved. General: Appears in no apparent distress. uncomfortable, Behavior is calm, cooperative. Neuro: Level of Consciousness is awake, alert, obeys commands, Oriented to person, place, time, situation, Speech is normal. Respiratory: Airway is patent Respiratory effort is even, unlabored, Respiratory pattern is regular, symmetrical. Vital Signs: 09:00 BP 121 / 68; Pulse 92; Resp 16; Pulse Ox 100% on R/A; db 09:07 BP 121 / 68; Pulse 95; Resp 24 S; Temp 97.9; Pulse Ox 100% on R/A; Weight 86.18 kg; jl7 Height 5 ft. 11 in. ; Pain 0/10; 10:00 BP 131 / 84; Pulse 78; Resp 16; Pulse Ox 96% on R/A; db 11:00 BP 107 / 60; Pulse 62; Resp 16; Pulse Ox 98% on R/A; db 12:02 BP 117 / 71; Pulse 65; Resp 18; Pulse Ox 97% on R/A; mb9 12:30 BP 115 / 73; Pulse 57; Resp 18; Pulse Ox 98% on R/A; db 13:30 BP 124 / 81; Pulse 66; Resp 16; Pulse Ox 96% on R/A; db 09:07 Body Mass Index 26.50 (86.18 kg, 180.34 cm) 7 09:07 Pain Scale: Adult [facility] ED Course: 08:50 Patient arrived in ED. mr 08:50 Angel Cheng MD is Private Physician. mr 08:51 [facility] 08:51 Diego Coe DO is Attending Physician. [facility] 09:08 Triage completed. jl7 09:08 Arm band placed on right wrist. jl7 09:09 Inserted saline lock: 20 gauge in right antecubital area, using aseptic technique. db Blood collected. 09:14 Hazel Tejeda, RN is Primary Nurse. db 09:22 CT Head Brain wo Cont In Process Unspecified. EDMS 09:38 XRAY Chest (1 view) In Process Unspecified. EDMS 11:00 Client placed on continuous cardiac and pulse oximetry monitoring. NIBP monitoring db applied. 11:00 No provider procedures requiring assistance completed. IV discontinued, intact, db bleeding controlled, No redness/swelling at site. 13:40 Patient has correct armband on for positive identification. Placed in gown. Bed in low db position. Call light in reach. Side rails up X2. Warm blanket given. Administered Medications: 09:14 Drug: Ativan IVP 0.5 mg Route: IVP; Site: right antecubital; db 13:38 Follow up: Response: No adverse reaction db 09:55 Drug: Lactated Ringers Solution IV 1000 ml Route: IV; Rate: 250 ml/hr; Site: right db antecubital; 13:38 Follow up: Response: No adverse reaction; IV Status: Completed infusion; IV Intake: db 775ml Medication: 13:42 VIS not applicable for this client. db Intake: 13:38 IV: 775ml; Total: 775ml. db Outcome: 12:40 Discharge ordered by MD. cosme 13:42 Discharged to home ambulatory, with family. db 13:42 Condition: good 13:42 Discharge instructions given to patient, family, Instructed on discharge instructions, follow up and referral plans. 13:42 Patient left the ED. db Signatures: Dispatcher [employer] EDMS Sanjay Hampton PA PA jmm Rivera, Mary CamposJose Cruz RN RN jl7 Hazel Tejeda RN RN Laurel Goyal, RN RN mb9
[2022-09-15 14:07] VITALS: TEMP 97.9
[2022-09-15 14:17] VITALS: BP 124/81; O2SAT 96
--- NOTE | 2022-09-17 08:24 | EKG ---
Test Date: 2022-09-15 Test Time: 09:01:41 Insole [place]asper: CARROLL MEASUREMENT RESULTS: Intervals: Rate: 92 W[place]: 152 QRSD: 94 QT: 366 QTc: 452 [place]: P: 68 W[place]: 152 QRS: 64 T: 62 INTERPRETIVE STATEMENTS: Normal sinus rhythm Normal ECG Compared to ECG 10/07/2019 23:13:16 No significant changes Electronically Signed On 09-17-22 08:18:41 CDT by Isma Ma
== END 2022-09-15 13:42 | disposition home or self-care (01) ==
LOC: ER 08:48
DX: R06.00 Dyspnea, unspecified (principal); E86.0 Dehydration; I10 Essential (primary) hypertension; E78.5 Hyperlipidemia, unspecified; Z95.818 Presence of other cardiac implants and grafts
CPT/HCPCS: 96361; 93005; 85025; 80048; 36415; 82550; 85610; 84484; 83880; 70450; 71045; 96374; 99284; J7120